=== PATIENT | female | born 1945 | race Caucasian/White ===

== ENCOUNTER 2020-09-01 08:00 | Day surgery (SDC) | payer MEDICARE, OTHER, SELFPAY ==
[2020-08-28 10:29] VITALS: BMI 21.1
--- NOTE | 2020-08-31 09:10 | HO.ANESPROP2 ---
Documented by User: Anahy Odonnell 08/31/20 09:13 HPI - Anesthesia Eval Consult details Narrative: 74yo F for Colonoscopy PMFSH Active Problems Active Problems: All Active Problems (Updated 08/28/20 @ 10:28 by Akua Melgoza) Familial hypercholesterolemia (Acute) Past Medical History Medical History COVID-19 vaccine administered Family History Family History Father No problems noted. Mother No problems noted. Brother No problems noted. Sister No problems noted. Sister No problems noted. Surgical History Surgical History H/O colonoscopy History of cataract surgery History of hysterectomy History of squamous cell carcinoma excision Social History Social History Alcohol intake: current Alcohol intake frequency: a few times a month Smoking Status: Former smoker Advance Directives Information Provided: No Meds Allergies Allergy/AdvReac Type Severity Reaction Status Date / Time dicloxacillin Allergy Unknown Unknown Verified 07/31/20 09:47 minocycline Allergy Unknown Unknown Verified 07/31/20 09:47 penicillin V Allergy Unknown Unknown Verified 07/31/20 09:47 tetracycline Allergy Unknown Unknown Verified 07/31/20 09:47 Home Medications Medication Instructions Recorded Confirmed Last Taken Type aspirin 81 mg tablet,delayed 81 mg PO DAILY 07/31/20 08/28/20 Unknown History release calcium carb-vit D3-minerals 600 1 tab PO BID 07/31/20 08/28/20 Unknown History mg calcium-400 unit tablet vitamin B complex 1 tab PO DAILY 07/31/20 08/28/20 Unknown History Exam Exam Date and Time: August 31, 2020 0910 Height,Weight and Vital Signs: Height 5 ft 4 in Weight 55.792 kg Assessment and Plan Assessment Anesthesia Assessment: Chart Reviewed Documented by User: Alesia Guillen 09/01/20 09:33 [facility] Past Medical History Medical History COVID-19 vaccine administered Family History Family History Father No problems noted. Mother No problems noted. Brother No problems noted. Sister No problems noted. Sister No problems noted. Family history of problems with anesthesia: No Surgical History Surgical History H/O colonoscopy History of cataract surgery History of hysterectomy History of squamous cell carcinoma excision History of Problems with Anesthesia: No Social History Social History Alcohol intake: current Alcohol intake frequency: a few times a month Smoking Status: Former smoker Advance Directives Information Provided: No Meds Allergies Allergy/AdvReac Type Severity Reaction Status Date / Time dicloxacillin Allergy Unknown Unknown Verified 07/31/20 09:47 minocycline Allergy Unknown Unknown Verified 07/31/20 09:47 penicillin V Allergy Unknown Unknown Verified 07/31/20 09:47 tetracycline Allergy Unknown Unknown Verified 07/31/20 09:47 Home Medications Medication Instructions Recorded Confirmed Last Taken Type aspirin 81 mg tablet,delayed 81 mg PO DAILY 07/31/20 08/28/20 Unknown History release calcium carb-vit D3-minerals 600 1 tab PO BID 07/31/20 08/28/20 Unknown History mg calcium-400 unit tablet vitamin B complex 1 tab PO DAILY 07/31/20 08/28/20 Unknown History Exam Height,Weight and Vital Signs: Vital Signs Temp Pulse Resp BP Pulse Ox 09/01/20 08:37 97.7 F 87 16 145/77 H 100 Airway Mallampati Class: II TM Dist: >3cm Neck ROM: Full Loose/Missing/Broken Teeth: No Heart: RRR Lungs: CTAB Assessment and Plan Assessment Anesthesia Assessment: Anesthesia Plan Discussed and Chart Reviewed Final Anesthetic Review NPO: Yes ASA Class: II Final Preanesthetic Review: No Changes in Pt Med Stat, Meds/Allgs Chart Reviewed, Consent Obtained/Reviewed and Anes Risks/Benef Reviewed Patient Risk: Low Procedure Risk: Low Assessment/Block/Sedation in SS: Assess/Block/Sedation-SS Anesthetic Plan Anesthetic Plan: MAC: Disposition: Standard PACU
[2020-09-01 08:37] VITALS: BP 145/77; PULSE 87; RESP 16; TEMP 36.5; O2SAT 100
[2020-09-01] MEDS: Lactated Ringers 1,000 ML 100 ML IVCONT (09:10)
--- NOTE | 2020-09-01 09:31 | MHC.SHP ---
Pre-Procedural Eval Section A The patient is an INPATIENT: No Changes since office visit: No Cold of Flu in the past 2 weeks, No New Medical Problems, No Changes in Medication and No Patient answered all questions The History & Physical has been completed within 30 days and I have reviewed it.: Yes Section B Chief Complaint: change in bowel habit Allergies: Allergies Allergy/AdvReac Type Severity Reaction Status Date / Time dicloxacillin Allergy Unknown Unknown Verified 07/31/20 09:47 minocycline Allergy Unknown Unknown Verified 07/31/20 09:47 penicillin V Allergy Unknown Unknown Verified 07/31/20 09:47 tetracycline Allergy Unknown Unknown Verified 07/31/20 09:47 Plan I have reviewed the history and physical and performed a pertinent physical examination on my patient. No changes have occurred unless specified.
[2020-09-01 10:15] VITALS: BP 98/49; PULSE 76; RESP 20; TEMP 36.1; O2SAT 100
--- NOTE | 2020-09-01 10:17 | PM.OP ---
Brief Operative Note Date of Service: 09/01/20 Pre-op diagnosis: change in bowels, hx polyps Post-op diagnosis: same (normal) Surgeon: Kai Baez Anesthesia: MAC Estimated blood loss (mL): 2 Pathology: other (sigmoid bxs) Condition: stable Disposition: PACU
[2020-09-01 10:30] VITALS: BP 132/62; PULSE 88; RESP 17; TEMP 36.1; O2SAT 100
--- NOTE | 2020-09-01 11:21 | OP_ITS ---
SURGEON: Kai Baez MD INDICATIONS: Change in bowel habits and personal history of colon polyps. PREOPERATIVE DIAGNOSIS: POSTOPERATIVE DIAGNOSIS: PROCEDURE PERFORMED: Colonoscopy to the terminal ileum. ESTIMATED BLOOD LOSS: COMPLICATIONS: ANESTHESIA: ASSISTANTS: SPECIMENS: MEDICATIONS: Monitored anesthesia care. DESCRIPTION OF PROCEDURE: History and physical performed. The risks and benefits of the procedure were explained to the patient. Informed consent was obtained. The patient was placed in the left lateral decubitus position. A digital rectal exam was performed and was found to be normal. The Olympus pediatric video colonoscope was introduced into the rectum and advanced to the cecum without difficulty. The cecum was identified by transillumination, palpation, and identification of ileocecal valve. Examination was performed and the scope was removed. She tolerated the procedure well and was transferred to recovery area in stable condition. FINDINGS: The terminal ileum was normal. The visualized colonic mucosa was normal. The quality of prep was good. The sigmoid was somewhat tortuous. There was sigmoid diverticulosis. No polyps were identified. Random sigmoid biopsies were obtained because of the patient's change in bowel habits. Retroflexed examination was normal. IMPRESSION: Normal colonoscopy. RECOMMENDATION: Follow up the biopsy results. Further screening exams are optional based on patient age. MD MANUELA Huertas/СВЕТЛАНА / [id number] MTDD
== END 2020-09-01 11:03 | disposition home or self-care (01) ==
PROVIDERS: PCP Internal Medicine; Visit Provider Internal Medicine Gastroenterology
PROC: 0DJD8ZZ Inspection of Lower Intestinal Tract, Via Natural or Artificial Opening Endoscopic (ICD-10-PCS; CPT 45378; principal; 2020-09-01 09:00)
DX: R19.4 Change in bowel habit (principal); Z86.010 Personal history of colon polyps; K57.30 Diverticulosis of large intestine without perforation or abscess without bleeding; Z85.828 Personal history of other malignant neoplasm of skin; Z87.891 Personal history of nicotine dependence; Z79.82 Long term (current) use of aspirin; Z79.899 Other long term (current) drug therapy
CPT/HCPCS: 45380; 88305; J3010

== ENCOUNTER 2021-04-23 10:58 | Outpatient (REF) | payer MEDICARE, OTHER, SELFPAY ==
--- NOTE | ~2021-04-23 | MM_ITS ---
EXAMINATION: MM SCREENING DIGITAL BREAST TOMOSYNTHESIS, BILATERAL CLINICAL INFORMATION: Screening. Asymptomatic. The lifetime risk of breast cancer based on the Tyrer-Cuzick Model is 2%. COMPARISON: Mammography: 03/17/2020, 01/21/2019, 01/08/2018 TECHNIQUE: Digital breast tomosynthesis is performed in both the craniocaudal and mediolateral oblique views along with computer-aided detection (CAD). Synthesized 2D images are generated from the tomosynthesis. FINDINGS: The breasts are heterogeneously dense, which may obscure small masses (ACR BI-RADS breast composition Category c). There are no significant masses, abnormal calcifications, or other abnormalities. No significant changes. MM/MM tomosynthesis screening BI IMPRESSION: No mammographic evidence of malignancy. ASSESSMENT: BI-RADS 1: Negative RECOMMENDATION: Routine annual mammography screening. This patient's information was entered into a reminder system with a target due date for their next mammogram.
== END 2021-04-23 10:59 | disposition home or self-care (01) ==
LOC: HO.MAMMO 10:58
PROVIDERS: Visit Provider Internal Medicine
DX: Z12.31 Encounter for screening mammogram for malignant neoplasm of breast (principal)
CPT/HCPCS: 77063; 77067

== ENCOUNTER 2021-09-04 07:21 | Outpatient (REF) | payer MEDICARE, OTHER, SELFPAY ==
[2021-09-04 08:27] LABS: Hematocrit 41.4 % (37.0-47.0); Mean Corpuscular HGB Conc 31.4 g/dl (31.0-35.0); Mean Corpuscular Hemoglobin 27.8 pg (27.0-33.0); Mean Corpuscular Volume 88.5 fL (80.0-98.0); Mean Platelet Volume 10.9 fL (9.4-12.3); Platelet Count 297 X10*3/uL (160-400); Red Blood Count 4.68 X10*6/uL (4.20-5.50); Red Cell Distribution Width 14.1 % (11.0-16.0); White Blood Count 6.8 X10*3/uL (4.8-10.8)
[2021-09-04 08:47] LABS: Alanine Aminotransferase 17 U/L (0-31); Albumin Level 3.9 g/dL (3.5-5.0); Alkaline Phosphatase 72 U/L (39-117); Anion Gap 11 (12-20); Aspartate Amino Transferase 22 U/L (5-31); Bilirubin Direct 0.2 mg/dL (0.0-0.5); Bilirubin Total 0.3 mg/dL (0.0-1.0); Blood Urea Nitrogen 14 mg/dL (9-16); Calcium 9.3 mg/dL (8.4-10.2); Carbon Dioxide 29 mmol/L (22-29); Chloride 106 mmol/L (96-108); Cholesterol 191 mg/dL; Estimated Glomerular Filt Rate > 60; Glucose Random 85 mg/dL (60-115); HDL Cholesterol 70 mg/dL; LDL Cholesterol Calculated 109 mg/dl; Potassium 5.1 mmol/L (3.3-5.1); Sodium 141 mmol/L (135-145); Total Protein 6.5 g/dL (6.5-8.0); Triglycerides 61 mg/dL
[2021-09-04 09:07] LABS: Appearance Urine CLEAR; Color Urine YELLOW; Glucose Urine UA NEG (NEG); Leukocyte Esterase Urine NEG (NEG); Nitrite Urine NEG (NEG); Specific Gravity - Urine 1.015 (1.005-1.025); Urine Blood TRACE (NEG); Urine Ketones NEG (NEG); Urine Protein NEG (NEG-TRACE)
[2021-09-04 09:10] LABS: Thyroid Stimulating Hormone 1.08 uIU/mL (0.32-4.0)
[2021-09-04 09:47] LABS: Amorphous Sediment Urine 2+ /LPF; Bacteria Urine TRACE /LPF; Squamous Epithelial Cell Urine TRACE /LPF
[2021-09-10 17:01] LABS: Vitamin D 25-OH, D2 <4 ng/mL; Vitamin D 25-OH, D3 46 ng/mL; Vitamin D 25-OH, Total 46 ng/mL (30-100)
== END 2021-09-04 07:22 | disposition home or self-care (01) ==
LOC: HO.LAB 07:21
PROVIDERS: PCP Internal Medicine; Visit Provider Internal Medicine
DX: E78.01 Familial hypercholesterolemia (principal)
CPT/HCPCS: 36415; 80048; 80061; 80076; 81001; 81003; 82306; 84443; 85027

== ENCOUNTER 2022-04-25 10:42 | Outpatient (REF) | payer MEDICARE, OTHER, SELFPAY ==
--- NOTE | ~2022-04-25 | MM_ITS ---
EXAMINATION: MM SCREENING DIGITAL BREAST TOMOSYNTHESIS, BILATERAL CLINICAL INFORMATION: Screening. Asymptomatic. COMPARISON: Mammography: 04/23/2021, 03/17/2020, 01/21/2019 TECHNIQUE: Digital breast tomosynthesis is performed in both the craniocaudal and mediolateral oblique views along with computer-aided detection (CAD). Synthesized 2D images are generated from the tomosynthesis. FINDINGS: The breasts are heterogeneously dense, which may obscure small masses (ACR BI-RADS breast composition Category c). There are no significant masses, abnormal calcifications, or other abnormalities. Parenchymal pattern is similar to prior studies. Parenchymal pattern is similar to prior studies. There is no developing density or architectural abnormality. The axilla and skin contours are unremarkable. No significant changes. MM/MM tomosynthesis screening BI IMPRESSION: No mammographic evidence of malignancy. ASSESSMENT: BI-RADS 1: Negative RECOMMENDATION: Routine annual mammography screening. This patient's information was entered into a reminder system with a target due date for their next mammogram.
== END 2022-04-25 10:43 | disposition home or self-care (01) ==
LOC: HO.MAMMO 10:42
PROVIDERS: PCP Internal Medicine; Visit Provider Internal Medicine
DX: Z12.31 Encounter for screening mammogram for malignant neoplasm of breast (principal)
CPT/HCPCS: 77063; 77067

== ENCOUNTER 2022-09-20 07:08 | Outpatient (REF) | payer MEDICARE, OTHER, SELFPAY ==
[2022-09-20 07:40] LABS: Hematocrit 44.2 % (37.0-47.0); Hemoglobin 14.3 g/dl (12.0-16.0); Mean Corpuscular HGB Conc 32.4 g/dl (31.0-35.0); Mean Corpuscular Hemoglobin 27.9 pg (27.0-33.0); Mean Corpuscular Volume 86.3 fL (80.0-98.0); Mean Platelet Volume 10.2 fL (9.4-12.3); Platelet Count 290 X10*3/uL (160-400); Red Blood Count 5.12 X10*6/uL (4.20-5.50); White Blood Count 7.7 X10*3/uL (4.8-10.8)
[2022-09-20 08:09] LABS: Alanine Aminotransferase 16 U/L (0-31); Albumin Level 4.1 g/dL (3.5-5.0); Alkaline Phosphatase 81 U/L (39-117); Anion Gap 11 (12-20); Aspartate Amino Transferase 22 U/L (5-31); Bilirubin Direct 0.2 mg/dL (0.0-0.5); Bilirubin Total 0.7 mg/dL (0.0-1.0); Blood Urea Nitrogen 12 mg/dL (9-16); Calcium 9.4 mg/dL (8.4-10.2); Carbon Dioxide 29 mmol/L (22-29); Chloride 106 mmol/L (96-108); Cholesterol 201 mg/dL; Estimated Glomerular Filt Rate > 60; Glucose Random 87 mg/dL (60-115); HDL Cholesterol 74 mg/dL; LDL Cholesterol Calculated 117 mg/dl; Potassium 4.9 mmol/L (3.3-5.1); Sodium 141 mmol/L (135-145); Total Protein 6.6 g/dL (6.5-8.0); Triglycerides 52 mg/dL
== END 2022-09-20 07:09 | disposition home or self-care (01) ==
LOC: HO.LAB 07:08
PROVIDERS: PCP Internal Medicine; Visit Provider Internal Medicine
DX: M26.609 Unspecified temporomandibular joint disorder, unspecified side (principal); E78.01 Familial hypercholesterolemia
CPT/HCPCS: 36415; 80048; 80061; 80076; 84443; 85027

== ENCOUNTER 2023-03-20 14:44 | Outpatient (AMB) | payer MEDICARE, OTHER, SELFPAY ==
--- NOTE | 2023-03-20 15:10 | A.OFFPC_ITS ---
Vital Signs 03/20/23 15:12 Height 5 ft 3 in Weight 123 lb 4 oz BMI 21.8 BP 122/60 Blood Pressure Location Lt brachial Position Sitting Pulse 71 Pulse Source Pulse Oximeter Pulse Oximetry (%) 98 Oxygen Delivery Method Room Air Intake Visit Reasons: 6M follow up Intake Note: Patient is here to follow up on Familial hypercholesterolemia. Blending Machine Operator Required: No Ice Delivery Driver: Not Required per policy Accompanied by: Self / Same As Patient Allergies dicloxacillin Allergy (Unknown, Verified 03/21/23 13:51) Unknown minocycline Allergy (Unknown, Verified 03/21/23 13:51) Unknown penicillin V Allergy (Unknown, Verified 03/21/23 13:51) Unknown tetracycline Allergy (Unknown, Verified 03/21/23 13:51) Unknown Medication List - Last Reconciled 03/21/23 by Yo Alex MD calcium carbonate (Calcium) 600 mg PO DAILY calcium carbonate-vit D3-min 600 mg calcium- 400 unit 1 tab PO BID clobetasol 0.05% 1 appl topical BEDTIME vitamin B complex (B Complex-Vitamin B12 tablet) 1 tab PO DAILY Tobacco use date assessed: 03/20/23 Fall risk assessment: No Falls in past year Last assessed Fall Risk: 03/20/23 Dental Screening Dental Screen Date: 03/20/23 Did you have a dental visit in the last 12 months?: Yes Did you have a dental problem in the last 6 months where you did not have access to dental care?: No Was dental information given to patient?: Patient has dentist HPI 6M follow up HPI Details 77-year-old female presents to the offic e to discuss her chronic medical conditions. Her TMJ symptoms have completely resolved. In the past few months patient has now had pain in her right foot. She was seeing a stock trader was diagnosed that her arch has fallen. He would like to get a bone density scan which has been scheduled for April. Patient is very reluctant to take any medications for osteoporosis. She does not like to take medications per se. Currently she is undergoing physical therapy and the bandages they have offered for her foot have been helping. [facility] Medical History COVID-19 vaccine administered Surgical History H/O colonoscopy History of squamous cell carcinoma excision History of cataract surgery History of hysterectomy Family History Father No problems noted. Mother No problems noted. Brother No problems noted. Sister No problems noted. Sister No problems noted. Paternal Grandfather Glaucoma Social History Housing: House Alcohol intake: current Alcohol intake frequency: a few times a month Patient Tobacco Use Status: Former Tobacco user Years Smoked: smoked for 25 years, stopped approximatly 25 years ago e-Cigarette/Vaping Use: Never Used Second Hand Smoke Exposure: No service: No Current occupational status: retired Cognitive needs: No Hearing needs: No Vision needs: No Questionnaire Thrive Questionnaire Date Thrive assessed: 09/16/22 RONNA-7 AMB Questionnaire RONNA-7 Date RONNA - 7 assessed: 09/16/22 Source: Developed by Drs. Kaden Fernandez, Caroline Osborne, Daren Juárez and colleagues, with an educational olivia from [employer]. Physical exam (Primary Care) Vital Signs: Last Vital Signs Pulse 71 03/20/23 15:12 BP 122/60 03/20/23 15:12 Pulse Ox 98 03/20/23 15:12 Oxygen Delivery Method Room Air 03/20/23 15:12 BMI result Body Mass Index 21.8 Tobacco/Smoking Status: Tobacco use Status Tobacco use date assessed 03/20/23 03/20/23 15:16 Patient Tobacco Use Status Former Tobacco user 03/20/23 15:16 e-Cigarette/Vaping Use Never Used 03/20/23 15:16 Thrive Assessment: Date of Thrive Assessment Date Thrive assessed 09/16/22 03/20/23 15:16 Const General: cooperative and healthy appearing Nutritional Appearance: well nourished Orientation/consciousness: patient oriented x3 Limitations: no limitations HENMT Head: Yes normal to inspection Eyes General: appearance normal, both eyes and all related structures Neck Neck: Yes normal visual inspection Chest Chest palpation & inspection: normal palpation of entire chest wall Resp Effort & Inspection: normal respiratory effort Neuro General: patient oriented x3 Assessment and Plan Assessment & Plan (1) Age related osteoporosis: Code(s): M81.0 - Age-related osteoporosis without current pathological fracture Plan: Bone density has been ordered. Will decide course of action after the test is available. Patient has been encouraged to increase calcium intake and exercise. (2) Familial hypercholesterolemia: Code(s): E78.01 - Familial hypercholesterolemia Plan: LDL is in range. Currently on no medications. Coding Level of Care Code Est Pt Level 4 (82523) Diagnoses Age related osteoporosis M81.0 Familial hypercholesterolemia E78.01
[2023-03-20 15:12] VITALS: BP 122/60; PULSE 71; O2SAT 98; BMI 21.8
== END 2023-03-20 15:38 | disposition home or self-care (01) ==
PROVIDERS: Visit Provider Internal Medicine
DX: M81.0 Age-related osteoporosis without current pathological fracture (principal); E78.01 Familial hypercholesterolemia
CPT/HCPCS: 99214

== ENCOUNTER 2023-04-01 09:34 | Outpatient (AMB) | payer MEDICARE, OTHER, SELFPAY ==
--- NOTE | 2023-04-01 09:59 | AM.OFFVISNUR ---
Intake Intake Visit Reasons: Flu Vaccine Allergies dicloxacillin Allergy (Unknown, Verified 03/21/23 13:51) Unknown minocycline Allergy (Unknown, Verified 03/21/23 13:51) Unknown penicillin V Allergy (Unknown, Verified 03/21/23 13:51) Unknown tetracycline Allergy (Unknown, Verified 03/21/23 13:51) Unknown Office Procedures Flu Questionnaire Does the patient have a severe egg allergy?: No Does the patient have severe life threatening allergies?: No Does the patient have a fever or illness today?: No Has the patient ever had Guillain-[place] Syndrome?: No Has the patient ever had any past reaction to a flu shot?: No Immunizations flu vacc [id number] 6mos up(PF) 60 mcg(15 mcgx4)/0.5 mL IM syringe Performing Provider: Yo Alex MD Performing Location: [facility] Administered by: Nilam Gilmore CMA on 04/01/23 10:00 Dose Route Admin Location Dispensed Lot Number Expiration Date NDC Refrigerating Engineer 0.5 mL IM Left Deltoid 0.5 mL [id number] 12/21/23 01015-614-20 [employer] VIS Given Date VIS Provided VIS Publication Date 04/01/23 Single Vaccine 21 Eligibility Eligibility Date Funding Source Not [facility] Eligible 04/01/23 Private Coding Assessment & Plan Assessment & Plan Orders: Orders Influenza [id number] Immunization Today Z23 - Encounter for immunization
== END 2023-04-01 10:10 | disposition home or self-care (01) ==
LOC: HO.HMGH 09:34
PROVIDERS: PCP Internal Medicine; Visit Provider Internal Medicine
DX: Z23 Encounter for immunization (principal)
CPT/HCPCS: 90471; 90686

== ENCOUNTER 2023-05-01 10:06 | Outpatient (REF) | payer MEDICARE, OTHER, SELFPAY ==
--- NOTE | ~2023-05-01 | MM_ITS ---
EXAMINATION: BONE DENSITOMETRY CLINICAL INDICATION: Age-related osteoporosis without current pathological fracture. COMPARISON: Previous BD dated 03/08/2014 and baseline BD dated 01/15/2008. TECHNIQUE: Using a cube19 DXA System (software version: 13.1) manufactured by [employer], dual-energy x-ray absorptiometry was performed of the lumbar spine and left hip. The images are of good technical quality. Summary results are attached. FINDINGS: AP SPINE L1-L3 (excluding L4): The data of L1-L4 has been changed to exclude the L4 vertebral body, because degenerative sclerosis at this level may cause overestimation of lumbar spine density. Current: BMD 0.778 g/cm2, Z-score -1.2, T-score -3.3, osteoporosis, 3.2% decrease from previous, 2.9% decrease from baseline (<5% change is not significant). Prior: BMD 0.804 g/cm2. Baseline: BMD 0.801 g/cm2. LEFT FEMUR, NECK: Current: BMD 0.660 g/cm2, Z-score -0.5, T-score -2.7, osteoporosis. Prior: BMD 0.776 g/cm2. Baseline: BMD 0.789 g/cm2. LEFT FEMUR, TOTAL: Current: BMD 0.646 g/cm2, Z-score -0.8, T-score -2.9, osteoporosis, 12.2% decrease from previous, 20.7% decrease from baseline (<5% change is not significant). Prior: BMD 0.736 g/cm2. Baseline: BMD 0.815 g/cm2. IDENTIFIED RISK FACTORS: Early menopause, secondary osteoporosis, hysterectomy, left oophorectomy, parental hip fracture. HISTORY OF FRACTURE: None listed. MEDICATIONS: Calcium supplements or multivitamin, vitamin D. MM/XR DEXA axial skeleton IMPRESSION: 1. DIAGNOSIS: Osteoporosis based on the lowest T-score value of -3.3 in the lumbar spine applying World Health Organization criteria. 2. 10-YEAR FRACTURE RISK PREDICTION, FRAX: According to the guidelines, FRAX calculation should only be performed on patients in the osteopenia bone density category. Therefore, FRAX was not performed on this patient. 3. Treatment Recommendations: NOF guidelines recommend consideration for treatment in postmenopausal women and men age 50 and older presenting with the following: -A hip or vertebral (clinical or morphometric) fracture. -T-score less than or equal to -2.5 at the femoral neck or spine after appropriate evaluation to exclude secondary causes. -Low bone mass at the hip or spine and a 10-year fracture probability by FRAX of greater than or equal to 3% for hip fracture or greater than or equal to 20% for major osteoporotic fracture based on the [place] adapted WHO algorithm. 4. Other Recommendations: All treatment decisions require clinical judgment and consideration of individual patient factors, including patient preferences, comorbidities, previous drug use, risk factors not captured in the FRAX model (e.g. frailty, falls, vitamin D deficiency, increased bone turnover, interval significant decline in bone density) and possible under or overestimation of fracture risk by FRAX. Additional medical evaluation for secondary cause of low bone mineral density may be appropriate. FUTURE SCAN RECOMMENDATION: People with diagnosed cases of osteoporosis or at high risk for fracture should have regular bone mineral density tests. For patients eligible for Medicare, routine testing is allowed once every 2 years. The testing frequency can be increased to one year for patients who have rapidly progressing disease, those who are receiving or discontinuing medical therapy to restore bone mass, or have additional risk factors.
== END 2023-05-01 10:07 | disposition home or self-care (01) ==
LOC: HO.MAMMO 10:06
PROVIDERS: PCP Internal Medicine; Visit Provider Internal Medicine
DX: Z12.31 Encounter for screening mammogram for malignant neoplasm of breast (principal); Z13.820 Encounter for screening for osteoporosis; M81.0 Age-related osteoporosis without current pathological fracture; Z78.0 Asymptomatic menopausal state
CPT/HCPCS: 77063; 77067; 77080; 77081

== ENCOUNTER → 2023-05-01 10:30 | Outpatient (BNV) | payer MEDICARE, OTHER, SELFPAY | PROVIDERS: PCP Internal Medicine; Visit Provider Radiology Diagnostic Radiology | DX: Z12.31 Encounter for screening mammogram for malignant neoplasm of breast (principal) | CPT/HCPCS: 77063; 77067 ==

== ENCOUNTER 2023-07-21 10:41 | Outpatient (AMB) | payer MEDICARE, OTHER, SELFPAY ==
--- NOTE | 2023-07-21 12:46 | AM.OFFWIN_ITS ---
Intake Vital Signs 07/21/23 12:50 Height 5 ft 3 in Weight 123 lb 6 oz BMI 21.9 BP 138/76 Blood Pressure Location Rt brachial Position Sitting Pulse 88 Pulse Source Pulse Oximeter Temp 97.6 F Temp Source Oral Pulse Oximetry (%) 99 Oxygen Delivery Method Room Air Intake Visit Reasons: EP Stomach, Fever, Runny Nose(Jeep Wrangler Black) Intake Note: Pt is here c/o stomach pain, fever, and runny nose since last week. Patient Tobacco Use Status: Former Tobacco user Allergies dicloxacillin Allergy (Unknown, Verified 07/21/23 12:52) Unknown minocycline Allergy (Unknown, Verified 07/21/23 12:52) Unknown penicillin V Allergy (Unknown, Verified 07/21/23 12:52) Unknown tetracycline Allergy (Unknown, Verified 07/21/23 12:52) Unknown Do you need a note to return to daycare/school/sports/work: No HPI EP Stomach, Fever, Runny Nose(Jeep Wrangler Black) HPI Details 77-year-old female presents to the [facility] for a sick visit. Patient is feeling queasy and nauseous for the past week. She feels bloated and some distention in the abdomen. Reports congestion in the chest at times. Occasional palpitations. No vomiting. No fevers or chills. PFSH Medical History COVID-19 vaccine administered Surgical History H/O colonoscopy History of squamous cell carcinoma excision History of cataract surgery History of hysterectomy Family History Father No problems noted. Mother No problems noted. Brother No problems noted. Sister No problems noted. Sister No problems noted. Paternal Grandfather Glaucoma Social History Housing: House Alcohol intake: current Alcohol intake frequency: a few times a month Patient Tobacco Use Status: Former Tobacco user Years Smoked: smoked for 25 years, stopped approximatly 25 years ago e-Cigarette/Vaping Use: Never Used Second Hand Smoke Exposure: No service: No Current occupational status: retired Cognitive needs: No Hearing needs: No Vision needs: No Physical Exam Vital Signs: Last Vital Signs Temp 97.6 F 07/21/23 12:50 Pulse 88 07/21/23 12:50 BP 138/76 07/21/23 12:50 Pulse Ox 99 07/21/23 12:50 Oxygen Delivery Method Room Air 07/21/23 12:50 BMI result Body Mass Index 21.9 Const General: cooperative and healthy appearing Nutritional Appearance: well nourished Orientation/consciousness: patient oriented x3 Limitations: no limitations HEENT Head: Yes normal to inspection Eyes General: appearance normal, both eyes and all related structures Neck Neck: Yes normal visual inspection Chest Chest palpation & inspection: normal palpation of entire chest wall Resp Effort & Inspection: normal respiratory effort Neuro General: patient oriented x3 Office Procedures EKG Details: NORMAL SINUS RHYTHM WITH PVCS. [id number], Complete Assessment & Plan Assessment & Plan (1) Abdominal pain: Code(s): R10.9 - Unspecified abdominal pain Plan: Physical exam was essentially unremarkable except for an irregular pulse. EKG confirms PVCs. Abdominal x-ray shows large amount of air and significant fecal matter. Her symptoms are more likely due to constipation and air in the colon. Milk of magnesia with instructions given. If symptoms do not improve after passing bowels, I suggested she follow-up here. Orders: Orders AMB EKG-In Office Today R07.9 - Chest pain, unspecified XR abdomen min 2V Today R10.9 - Unspecified abdominal pain Coding Level of Care Code Est Pt Level 4 (30178) Diagnoses Abdominal pain R10.9 CPT Codes EKG - CPT: 50932-[id number], Complete ([id number])
[2023-07-21 12:50] VITALS: BP 138/76; PULSE 88; TEMP 36.4; O2SAT 99; BMI 21.9
== END 2023-07-21 14:46 | disposition home or self-care (01) ==
PROVIDERS: PCP Internal Medicine; Visit Provider Internal Medicine
DX: R10.9 Unspecified abdominal pain (principal)
CPT/HCPCS: 93000; 99214

== ENCOUNTER 2023-07-21 13:44 | Outpatient (REF) | payer MEDICARE, OTHER, SELFPAY ==
--- NOTE | ~2023-07-21 | XR_ITS ---
EXAMINATION: XR ABDOMEN COMPLETE CLINICAL INDICATION: Unspecified abdominal pain COMPARISON: None available. TECHNIQUE: 2 views of the abdomen. FINDINGS: There is scattered moderate stool and gas seen throughout the colon without distention. There is no organomegaly. No radiopaque calculi. No gross bony abnormality. XR/XR abdomen min 2V IMPRESSION: Moderate constipation.
== END 2023-07-21 13:45 | disposition home or self-care (01) ==
LOC: HO.HMGCX 13:44
PROVIDERS: PCP Internal Medicine; Visit Provider Internal Medicine
DX: R10.9 Unspecified abdominal pain (principal)
CPT/HCPCS: 74019

== ENCOUNTER 2023-09-11 14:49 | Outpatient (AMB) | payer MEDICARE, OTHER, SELFPAY ==
--- NOTE | 2023-09-11 14:56 | A.OFFPC_ITS ---
Vital Signs 09/11/23 15:00 Height 5 ft 3 in Weight 123 lb 2 oz BMI 21.8 BP 132/70 Blood Pressure Location Lt brachial Position Sitting Pulse 68 Pulse Source Pulse Oximeter Pulse Oximetry (%) 100 Oxygen Delivery Method Room Air Intake Visit Reasons: 6 month f/u Intake Note: Patient is here to follow up on Osteoporosis, TMJ Dysfunction, Familial Hypercholesterolemia. Bin Tripper Operator Required: No Maintenance Fitter: Not Required per policy Accompanied by: Self / Same As Patient Allergies dicloxacillin Allergy (Unknown, Verified 09/11/23 14:59) Unknown minocycline Allergy (Unknown, Verified 09/11/23 14:59) Unknown penicillin V Allergy (Unknown, Verified 09/11/23 14:59) Unknown tetracycline Allergy (Unknown, Verified 09/11/23 14:59) Unknown Tobacco use date assessed: 09/11/23 Fall risk assessment: No Falls in past year Last assessed Fall Risk: 09/11/23 Dental Screening Dental Screen Date: 09/11/23 Did you have a dental visit in the last 12 months?: Yes Did you have a dental problem in the last 6 months where you did not have access to dental care?: No Was dental information given to patient?: Patient has dentist HPI 6 month f/u HPI Details 77-year-old female presents to the offic e to discuss her chronic medical conditions. I had seen the patient in the walk-in. She responded very well to the milk of magnesia and her symptoms have all resolved. She is back to her baseline state of health. Able to function and do all activities of daily living. Recent bone density showed osteoporosis, patient very reluctant to start any medications. [facility], [facility] Medical History (Updated 09/11/23 @ 16:02 by Yo Alex MD) Age related osteoporosis Familial hypercholesterolemia Constipation by delayed colonic transit COVID-19 vaccine administered Surgical History H/O colonoscopy History of squamous cell carcinoma excision History of cataract surgery History of hysterectomy Family History Father No problems noted. Mother No problems noted. Brother No problems noted. Sister No problems noted. Sister No problems noted. Paternal Grandfather Glaucoma Social History Housing: House Alcohol intake: current Alcohol intake frequency: a few times a month Patient Tobacco Use Status: Former Tobacco user Years Smoked: smoked for 25 years, stopped approximatly 25 years ago e-Cigarette/Vaping Use: Never Used Second Hand Smoke Exposure: No service: No Current occupational status: retired Cognitive needs: No Hearing needs: No Vision needs: No Questionnaire PHQ-9 Over the last 2 weeks, how often have you been bothered by any of the following problems? 1. Little interest or pleasure in doing things: not at all 2. Feeling down, depressed, or hopeless: not at all 3. Trouble falling or staying asleep, or sleeping too much: not at all 4. Feeling tired or having little energy: not at all 5. Poor appetite or overeating: not at all 6. Feeling bad about yourself - or that you are a failure or have let yourself or your family down: not at all 7. Trouble concentrating on things, such as reading the newspaper or watching television: not at all 8. Moving or speaking so slowly that other people could have noticed. Or the opposite - being so fidgety or restless that you have been moving around a lot more than usual: not at all 9. Thoughts that you would be better off or of hurting yourself in some way: not at all Total score: 0 Depression Screening Interpretation: Negative Depression Screening Done: Yes Source: Developed by Drs. Kaden Fernandez, Caroline Osborne, Daren Juárez and colleagues, with an educational oilvia from [employer]. Thrive Questionnaire Date Thrive assessed: 09/11/23 I am a: Patient What is your living situation today?: I have a steady place to live Within the past 12 months, did the food you bought not last and you didn't have the money to get more?: Never true Within the past 12 months, did you worry whether your food would run out before you got money to buy more?: Never true Do you have trouble paying for medicines?: No Do you have trouble getting transportation to medical appointments?: No Do you have trouble paying your heating and electricity bill?: No Do you have trouble taking care of your child, family member or friend?: No Do you have trouble with day-to-day activities such as bathing, preparing meals, shopping, managing finances, etc.?: No Are you currently unemployed and looking for a job?: No Are you interested in more education?: No Currently or been in a relationship where the following occur: no concerns reported THRIVE Score: 0 AUDIT C Alcohol Use Questionnaire (AUDIT-C) 1. How often do you have a drink containing alcohol?: Never Total Score: 0 RONNA-7 AMB Questionnaire RONNA-7 Date RONNA - 7 assessed: 09/11/23 Feeling nervous, anxious, or on edge: 0 = Not at all Not being able to stop or control worryin = Not at all Worrying too much about different things: 0 = Not at all Trouble relaxin = Not at all Being so restless that it is hard to sit still: 0 = Not at all Becoming easily annoyed or irritable: 0 = Not at all Feeling afraid as if something awful might happen: 0 = Not at all Total RONNA-7 score (0-4 normal; 5-9 mild; 10-14 moderate; 15-21 severe): 0 Source: Developed by Drs. Kaden Fernandez, Caroline Osborne, Daren Juárez and colleagues, with an educational olivia from [employer]. Physical exam (Primary Care) Vital Signs: Last Vital Signs Pulse 68 09/11/23 15:00 BP 132/70 09/11/23 15:00 Pulse Ox 100 09/11/23 15:00 Oxygen Delivery Method Room Air 09/11/23 15:00 BMI result Body Mass Index 21.8 Tobacco/Smoking Status: Tobacco use Status Tobacco use date assessed 09/11/23 09/11/23 15:05 Patient Tobacco Use Status Former Tobacco user 09/11/23 14:56 e-Cigarette/Vaping Use Never Used 09/11/23 14:56 PHQ-9: PHQ-9 Score PHQ-9: Total score 0 09/11/23 15:05 Depression Screening Interpretation: Negative Thrive Assessment: Date of Thrive Assessment Date Thrive assessed 09/11/23 09/11/23 15:05 Currently or been in a relationship where the following occur: no concerns reported Const General: cooperative and healthy appearing Nutritional Appearance: well nourished Orientation/consciousness: patient oriented x3 Limitations: no limitations HENMT Head: Yes normal to inspection Eyes General: appearance normal, both eyes and all related structures Neck Neck: Yes normal visual inspection Chest Chest palpation & inspection: normal palpation of entire chest wall Resp Effort & Inspection: normal respiratory effort Neuro General: patient oriented x3 Assessment and Plan Assessment & Plan (1) Age related osteoporosis: Code(s): M81.0 - Age-related osteoporosis without current pathological fracture Plan: DEXA scan discussed with patient. She is reluctant to start medications. Patient was encouraged exercise and diet rich in calcium. (2) Familial hypercholesterolemia: Code(s): E78.01 - Familial hypercholesterolemia Plan: Blood work has been ordered. Will call with the results. (3) Constipation by delayed colonic transit: Code(s): K59.01 - Slow transit constipation Plan: High-fiber diet suggested. Coding Level of Care Code Est Pt Level 4 (27342) Diagnoses Age related osteoporosis M81.0 Familial hypercholesterolemia E78.01 Constipation by delayed colonic transit K59.01
[2023-09-11 15:00] VITALS: BP 132/70; PULSE 68; O2SAT 100; BMI 21.8
== END 2023-09-11 16:03 | disposition home or self-care (01) ==
PROVIDERS: PCP Internal Medicine; Visit Provider Internal Medicine
DX: M81.0 Age-related osteoporosis without current pathological fracture (principal); E78.01 Familial hypercholesterolemia; K59.01 Slow transit constipation
CPT/HCPCS: 99214

== ENCOUNTER 2023-09-22 07:37 | Outpatient (REF) | payer MEDICARE, OTHER, SELFPAY ==
[2023-09-22 08:02] LABS: Mean Corpuscular HGB Conc 33.3 g/dl (31.0-35.0); Mean Corpuscular Hemoglobin 28.5 pg (27.0-33.0); Mean Corpuscular Volume 85.5 fL (80.0-98.0); Platelet Count 291 X10*3/uL (160-400); Red Blood Count 4.91 X10*6/uL (4.20-5.50); Red Cell Distribution Width 13.8 % (11.0-16.0); White Blood Count 6.8 X10*3/uL (4.8-10.8)
[2023-09-22 08:35] LABS: Alanine Aminotransferase 18 U/L (0-31); Albumin Level 4.1 g/dL (3.5-5.0); Alkaline Phosphatase 82 U/L (39-117); Anion Gap 10 (12-20); Aspartate Amino Transferase 20 U/L (5-31); Bilirubin Direct 0.2 mg/dL (0.0-0.5); Bilirubin Total 0.5 mg/dL (0.0-1.0); Blood Urea Nitrogen 13 mg/dL (9-16); Calcium 9.7 mg/dL (8.4-10.2); Carbon Dioxide 29 mmol/L (22-29); Chloride 106 mmol/L (96-108); Cholesterol 196 mg/dL (<200); Estimated Glomerular Filt Rate > 60; Glucose Random 90 mg/dL (60-115); HDL Cholesterol 74 mg/dL (>40); LDL Cholesterol Calculated 111 mg/dL (<100); Potassium 4.1 mmol/L (3.3-5.1); Sodium 141 mmol/L (135-145); Total Protein 6.8 g/dL (6.5-8.0); Triglycerides 58 mg/dL (<150)
[2023-09-22 08:53] LABS: Thyroid Stimulating Hormone 1.14 uIU/mL (0.32-4.0)
[2023-09-22 09:27] LABS: Appearance Urine Clear; Color Urine Yellow; Glucose Urine UA Negative (Negative); Leukocyte Esterase Urine Moderate (2+) (Negative); Nitrite Urine Negative (Negative); UMIC TRIGGER UA YES; Urine Blood Trace (Negative); Urine Ketones Negative (Negative); Urine Protein Negative (Neg-Trace)
[2023-09-22 10:03] LABS: Bacteria Urine None Seen (None Seen); Hyaline Casts Urine 0-2 /LPF (0-2); Squamous Epithelial Cell Urine 0-2 /HPF (0-2); WBC Urine 0-5 /HPF (0-5)
== END 2023-09-22 07:38 | disposition home or self-care (01) ==
LOC: HO.LAB 07:37
PROVIDERS: PCP Internal Medicine; Visit Provider Internal Medicine
DX: E78.01 Familial hypercholesterolemia (principal)
CPT/HCPCS: 36415; 80048; 80061; 80076; 81001; 81003; 84443; 85027

== ENCOUNTER 2024-03-18 14:59 | Outpatient (AMB) | payer MEDICARE, OTHER, SELFPAY ==
--- NOTE | 2024-03-18 15:05 | A.OFFPC_ITS ---
Vital Signs 03/18/24 15:06 Height 5 ft 3 in Weight 122 lb BMI 21.6 BP 110/70 Blood Pressure Location Rt brachial Position Sitting Intake Visit Reasons: 6 follow up Intake Note: Patient is here to follow up on TMJ Dysfunction, Hypercholesterolemia. Computer Operations Specialist Required: No Head Charrer: Not Required per policy Accompanied by: Self / Same As Patient Allergies dicloxacillin Allergy (Unknown, Verified 03/19/24 15:03) Unknown minocycline Allergy (Unknown, Verified 03/19/24 15:03) Unknown penicillin V Allergy (Unknown, Verified 03/19/24 15:03) Unknown tetracycline Allergy (Unknown, Verified 03/19/24 15:03) Unknown Medication List - Last Reconciled 03/19/24 by Yo Alex MD fluticasone propionate 50 mcg/actuation (Flonase Allergy Relief) 1 spray intranasal DAILY Tobacco use date assessed: 03/18/24 Fall risk assessment: No Falls in past year Last assessed Fall Risk: 03/18/24 Dental Screening Dental Screen Date: 09/11/23 HPI 6 follow up HPI Details 78-year-old female presents to the offic e to discuss her chronic medical conditions. Patient is reporting that she is at baseline state of health. Able to function and do activities of daily living. Patient has symptoms of persistent running nose and believes that it is an exaggeration of her allergy symptoms. [facility] Medical History (Updated 09/11/23 @ 16:02 by Yo Alex MD) Age related osteoporosis Familial hypercholesterolemia Constipation by delayed colonic transit COVID-19 vaccine administered Surgical History H/O colonoscopy History of squamous cell carcinoma excision History of cataract surgery History of hysterectomy Family History Father No problems noted. Mother No problems noted. Brother No problems noted. Sister No problems noted. Sister No problems noted. Paternal Grandfather Glaucoma Social History Housing: House Alcohol intake: current Alcohol intake frequency: a few times a month Patient Tobacco Use Status: Former Tobacco user Years Smoked: smoked for 25 years, stopped approximatly 25 years ago e-Cigarette/Vaping Use: Never Used Second Hand Smoke Exposure: No service: No Current occupational status: retired Cognitive needs: No Hearing needs: No Vision needs: No Questionnaire Thrive Questionnaire Date Thrive assessed: 09/11/23 Are you currently unemployed and looking for a job?: No AUDIT C Alcohol Use Questionnaire (AUDIT-C) 2. How many drinks containing alcohol do you have on a typical day when you are drinking?: 1 or 2 3. How often do you have six or more drinks on one occasion?: Never Total Score: 0 RONNA-7 AMB Questionnaire RONNA-7 Date RONNA - 7 assessed: 09/11/23 Source: Developed by Drs. Kaden Fernandez, Caroline Osborne, Daren Juárez and colleagues, with an educational olivia from [employer]. Physical exam (Primary Care) Vital Signs: Last Vital Signs BP 110/70 03/18/24 15:06 BMI result Body Mass Index 21.6 Tobacco/Smoking Status: Tobacco use Status Tobacco use date assessed 03/18/24 03/18/24 15:16 Patient Tobacco Use Status Former Tobacco user 03/18/24 15:16 e-Cigarette/Vaping Use Never Used 03/18/24 15:16 Thrive Assessment: Date of Thrive Assessment Date Thrive assessed 09/11/23 03/18/24 15:16 Const General: cooperative and healthy appearing Nutritional Appearance: well nourished Orientation/consciousness: patient oriented x3 Limitations: no limitations HENMT Head: Yes normal to inspection Eyes General: appearance normal, both eyes and all related structures Neck Neck: Yes normal visual inspection Chest Chest palpation & inspection: normal palpation of entire chest wall Resp Effort & Inspection: normal respiratory effort Neuro General: patient oriented x3 Assessment and Plan Assessment & Plan (1) Allergic rhinitis: Code(s): J30.9 - Allergic rhinitis, unspecified Plan: Flonase added to the regimen. Medications: New fluticasone propionate 50 mcg/actuation (Flonase Allergy Relief) administer into each nostril 1 spray intranasal DAILY 9.9 mL 1RF Coding Level of Care Code Est Pt Level 3 (39095) Diagnoses Allergic rhinitis J30.9
[2024-03-18 15:06] VITALS: BP 110/70; BMI 21.6
== END 2024-03-18 15:44 | disposition home or self-care (01) ==
PROVIDERS: PCP Internal Medicine; Visit Provider Internal Medicine
DX: J30.9 Allergic rhinitis, unspecified (principal)

== ENCOUNTER → 2024-03-18 14:59 | Outpatient (BNVA) | payer MEDICARE, OTHER, SELFPAY | PROVIDERS: PCP Internal Medicine; Visit Provider Internal Medicine | DX: J30.9 Allergic rhinitis, unspecified (principal) | CPT/HCPCS: 99212 ==

== ENCOUNTER 2024-05-06 10:03 | Outpatient (REF) | payer MEDICARE, OTHER, SELFPAY ==
--- NOTE | ~2024-05-06 | MM_ITS ---
EXAMINATION: MM SCREENING DIGITAL BREAST TOMOSYNTHESIS, BILATERAL CLINICAL INFORMATION: Screening. Asymptomatic. COMPARISON: Mammography: Comparison is made with available priors TECHNIQUE: Digital breast mammography with tomosynthesis is performed in both the craniocaudal and mediolateral oblique views along with computer-aided detection (CAD). FINDINGS: The breasts are heterogeneously dense, which may obscure small masses (ACR BI-RADS breast composition Category c). There are no significant masses, abnormal calcifications, or other abnormalities. MM/MM tomosynthesis screening BI IMPRESSION: No mammographic evidence of malignancy. ASSESSMENT: BI-RADS BI-RADS 1 - Negative RECOMMENDATION: Routine annual mammography screening. 1 year F/U This examination should not preclude the clinical evaluation of a suspicious palpable abnormality. This patient's information was entered into a reminder system with a target due date for their next mammogram. Electronically signed by: Brittaney Crisostomo DO 05/14/2024 10:45 AM TONY
== END 2024-05-06 10:04 | disposition home or self-care (01) ==
LOC: HO.MAMMO 10:03
PROVIDERS: PCP Internal Medicine; Visit Provider Internal Medicine
DX: Z12.31 Encounter for screening mammogram for malignant neoplasm of breast (principal)
CPT/HCPCS: 77063; 77067

== ENCOUNTER → 2024-05-06 10:15 | Outpatient (BNV) | payer MEDICARE, OTHER, SELFPAY | PROVIDERS: PCP Internal Medicine; Visit Provider Internal Medicine | DX: Z12.31 Encounter for screening mammogram for malignant neoplasm of breast (principal) | CPT/HCPCS: 77063; 77067 ==

== ENCOUNTER 2024-06-30 09:12 | Outpatient (AMB) | payer MEDICARE, OTHER, SELFPAY ==
--- NOTE | 2024-06-30 09:20 | MHC.PC.OV ---
Vital Signs 06/30/24 09:24 Height 5 ft 3 in Weight 122 lb 8 oz BMI 21.7 BP 110/68 Blood Pressure Location Lt brachial Position Sitting Pulse 71 Pulse Source Pulse Oximeter Pulse Oximetry (%) 97 Oxygen Delivery Method Room Air Intake Visit Reasons: Osteoporosis Intake Note: Patient is here to follow up on Osteoporosis. American History Teacher Required: No Estimate Clerk: Not Required per policy Accompanied by: Self / Same As Patient Allergies dicloxacillin Allergy (Unknown, Verified 06/30/24 10:11) Unknown minocycline Allergy (Unknown, Verified 06/30/24 10:11) Unknown penicillin V Allergy (Unknown, Verified 06/30/24 10:11) Unknown tetracycline Allergy (Unknown, Verified 06/30/24 10:11) Unknown Medication List - Last Reconciled 06/30/24 by Yo Alex MD No Known Home Meds Tobacco use date assessed: 06/30/24 Fall risk assessment: No Falls in past year Last assessed Fall Risk: 06/30/24 Dental Screening Dental Screen Date: 06/30/24 Did you have a dental visit in the last 12 months?: Yes Did you have a dental problem in the last 6 months where you did not have access to dental care?: No Was dental information given to patient?: Patient has dentist [facility] Medical History (Updated 06/30/24 @ 10:13 by Yo Alex MD) Squamous cell carcinoma of left upper extremity Age related osteoporosis Familial hypercholesterolemia Constipation by delayed colonic transit COVID-19 vaccine administered Surgical History H/O colonoscopy History of squamous cell carcinoma excision History of cataract surgery History of hysterectomy Family History Father No problems noted. Mother No problems noted. Brother No problems noted. Sister No problems noted. Sister No problems noted. Paternal Grandfather Glaucoma Social History Housing: House Alcohol intake: current Alcohol intake frequency: a few times a month Patient Tobacco Use Status: Former Tobacco user Years Smoked: smoked for 25 years, stopped approximatly 25 years ago e-Cigarette/Vaping Use: Never Used Second Hand Smoke Exposure: Yes service: No Current occupational status: retired Cognitive needs: No Hearing needs: No Vision needs: No Questionnaire PHQ-9 Over the last 2 weeks, how often have you been bothered by any of the following problems? 1. Little interest or pleasure in doing things: not at all 2. Feeling down, depressed, or hopeless: not at all 3. Trouble falling or staying asleep, or sleeping too much: not at all 4. Feeling tired or having little energy: not at all 5. Poor appetite or overeating: not at all 6. Feeling bad about yourself - or that you are a failure or have let yourself or your family down: not at all 7. Trouble concentrating on things, such as reading the newspaper or watching television: not at all 8. Moving or speaking so slowly that other people could have noticed. Or the opposite - being so fidgety or restless that you have been moving around a lot more than usual: not at all 9. Thoughts that you would be better off or of hurting yourself in some way: not at all Total score: 0 Depression Screening Interpretation: Negative Depression Screening Done: Yes Source: Developed by Drs. Kaden Fernandez, Caroline Osborne, Daren Juárez and colleagues, with an educational olivia from [employer]. Thrive Questionnaire Date Thrive assessed: 06/30/24 I am a: Patient What is your living situation today?: I have a steady place to live Within the past 12 months, did the food you bought not last and you didn't have the money to get more?: Never true Within the past 12 months, did you worry whether your food would run out before you got money to buy more?: Never true Do you have trouble paying for medicines?: No Do you have trouble getting transportation to medical appointments?: No Do you have trouble paying your heating and electricity bill?: No Do you have trouble taking care of your child, family member or friend?: No Do you have trouble with day-to-day activities such as bathing, preparing meals, shopping, managing finances, etc.?: No Are you currently unemployed and looking for a job?: No Are you interested in more education?: No Please select the resources that you would like help with: None Currently or been in a relationship where the following occur: No concerns reported THRIVE Score: 0 AUDIT C Alcohol Use Questionnaire (AUDIT-C) 1. How often do you have a drink containing alcohol?: Never 2. How many drinks containing alcohol do you have on a typical day when you are drinking?: 1 or 2 3. How often do you have six or more drinks on one occasion?: Never Total Score: 0 RONNA-7 AMB Questionnaire RONNA-7 Date RONNA - 7 assessed: 06/30/24 Feeling nervous, anxious, or on edge: 0 = Not at all Not being able to stop or control worryin = Not at all Worrying too much about different things: 0 = Not at all Trouble relaxin = Not at all Being so restless that it is hard to sit still: 0 = Not at all Becoming easily annoyed or irritable: 0 = Not at all Feeling afraid as if something awful might happen: 0 = Not at all Total RONNA-7 score (0-4 normal; 5-9 mild; 10-14 moderate; 15-21 severe): 0 Source: Developed by Drs. Kaden Fernandez, Caroline Osborne, Daren Juárez and colleagues, with an educational olivia from [employer]. Physical exam (Primary Care) Vital Signs: Last Vital Signs Pulse 71 06/30/24 09:24 BP 110/68 06/30/24 09:24 Pulse Ox 97 06/30/24 09:24 Oxygen Delivery Method Room Air 06/30/24 09:24 Care Plan Goal for BP management: BP in range. On no medications BMI result Body Mass Index 21.7 Tobacco/Smoking Status: Tobacco use Status Tobacco use date assessed 06/30/24 06/30/24 09:21 Patient Tobacco Use Status Former Tobacco user 06/30/24 09:21 e-Cigarette/Vaping Use Never Used 06/30/24 09:21 PHQ-9: PHQ-9 Score PHQ-9: Total score 0 06/30/24 09:21 Depression Screening Interpretation: Negative Thrive Assessment: Date of Thrive Assessment Date Thrive assessed 06/30/24 06/30/24 09:21 Currently or been in a relationship where the following occur: No concerns reported Coding Level of Care Code Est Pt Level 4 (55945) Complex EM visit Add On G2211 Diagnoses Age related osteoporosis M81.0 Familial hypercholesterolemia E78.01 Squamous cell carcinoma of left upper extremity C44.629 Assessment & Plan Assessment & Plan (1) Age related osteoporosis: Code(s): M81.0 - Age-related osteoporosis without current pathological fracture Category: Medical Plan: Bone density to be checked later this year. Continue diet and exercise. No medication needed. (2) Familial hypercholesterolemia: Code(s): E78.01 - Familial hypercholesterolemia Category: Medical Plan: LDL in range. No medication needed. (3) Squamous cell carcinoma of left upper extremity: Code(s): C44.629 - Squamous cell carcinoma of skin of left upper limb, including shoulder Category: Medical Plan: Patient sees the kosher sealer and a Mohs procedure is being planned. Plan History of Present Illness The patient is a 78-year-old female presenting with a dermatological concern specifically related to previous biopsies revealing squamous cell carcinoma. The patient reports having undergone four biopsies, with two resulting in squamous cell carcinoma findings. There is a lesion on the side of her face and another on her hand. The hand lesion has been recommended for Mohs micrographic surgery, which is scheduled in two weeks. She notes that the lesion on her hand has not been healing and continues to bleed. She has been visiting a kosher sealer regularly, and this current situation arose during her most recent examination. Social History - Dietary habits include a regular, healthy diet and experimentation with Benefiber for gastrointestinal concerns. - Participates in as much physical activity as feasible, including daily outings but has not been consistent with weight lifting. - Enjoys cooking, although she self-reports a desire to improve skills. - Drives independently but avoids driving at night unless necessary. - Engages in personal health responsibilities, including receiving influenza and COVID vaccinations. Review of Systems - General: Denies any current pain. - Genitourinary: Denies trouble with urination. - Neurological: Reports fluctuations in sleep quality. Physical Exam General: Cooperative and healthy appearing Nutritional Appearance: Well nourished Orientation/consciousness: Patient oriented x3 Limitations: No limitations Head: Normal to inspection General: Appearance normal, both eyes and all related structures Neck: Normal visual inspection Chest: Normal palpation of entire chest wall Respiratory: Normal respiratory effort Neurology: Patient oriented x3 Results - Dermatological biopsies: Two confirmed squamous cell carcinoma findings. Plan - Scheduled Mohs surgery for the hand lesion in two weeks to ensure complete excision. - Follow-up with the kosher sealer for re-evaluation of the facial lesion. Patient was informed and verbally consented to the use of an ambient scribe for clinic note documentation during this visit. Discussion Notes During the visit, I discussed the diagnosis of squamous cell carcinoma arising from the recent biopsy results. I explained the recommendation for Mohs micrographic surgery for the lesion on the hand, emphasizing its importance due to the non-healing and bleeding nature of the lesion. I provided reassurance regarding the procedure and potential outcomes. Options were discussed, and the patient expressed understanding and acceptance of the recommended plan. I confirmed the scheduling of the procedure in two weeks and stressed the need for continued follow-up visits with her kosher sealer. Patient Instructions - Proceed with the scheduled Mohs surgery for the hand lesion. - Continue regular follow-up with the kosher sealer for all scheduled evaluations. - Contact the medical office immediately if there is any change in the condition of the lesions or any concerns post-surgery.
[2024-06-30 09:24] VITALS: BP 110/68; PULSE 71; O2SAT 97; BMI 21.7
== END 2024-06-30 10:04 | disposition home or self-care (01) ==
PROVIDERS: PCP Internal Medicine; Visit Provider Internal Medicine
DX: M81.0 Age-related osteoporosis without current pathological fracture (principal); E78.01 Familial hypercholesterolemia; C44.629 Squamous cell carcinoma of skin of left upper limb, including shoulder

== ENCOUNTER → 2024-06-30 09:12 | Outpatient (BNVA) | payer MEDICARE, OTHER, SELFPAY | PROVIDERS: PCP Internal Medicine; Visit Provider Internal Medicine | DX: M81.0 Age-related osteoporosis without current pathological fracture (principal); E78.01 Familial hypercholesterolemia; C44.629 Squamous cell carcinoma of skin of left upper limb, including shoulder | CPT/HCPCS: 96127; 99212 ==

== ENCOUNTER 2024-12-30 09:46 | Outpatient (AMB) | payer MEDICARE, OTHER, SELFPAY ==
--- NOTE | 2024-12-30 10:03 | MHC.PC.OV ---
Vital Signs 12/30/24 10:04 Height 5 ft 3 in Weight 118 lb 6 oz BMI 21.0 BP 142/80 H Blood Pressure Location Lt brachial Position Sitting Pulse 87 Pulse Source Pulse Oximeter Temp 97.1 F Temp Source Temporal Artery Scan Pulse Oximetry (%) 100 Oxygen Delivery Method Room Air Intake Visit Reasons: 6 month f/u Systems Analyst Required: No Accompanied by: Self / Same As Patient Allergies dicloxacillin Allergy (Unknown, Verified 12/30/24 10:07) Unknown minocycline Allergy (Unknown, Verified 12/30/24 10:07) Unknown penicillin V Allergy (Unknown, Verified 12/30/24 10:07) Unknown tetracycline Allergy (Unknown, Verified 12/30/24 10:07) Unknown Tobacco use date assessed: 06/30/24 Fall risk assessment: No Falls in past year Last assessed Fall Risk: 12/30/24 Dental Screening Dental Screen Date: 06/30/24 [facility] Medical History (Updated 06/30/24 @ 10:13 by Yo Alex MD) Squamous cell carcinoma of left upper extremity Age related osteoporosis Familial hypercholesterolemia Constipation by delayed colonic transit COVID-19 vaccine administered Surgical History H/O colonoscopy (~09/01/20) History of squamous cell carcinoma excision History of cataract surgery History of hysterectomy Family History Father No problems noted. Mother No problems noted. Brother No problems noted. Sister No problems noted. Sister No problems noted. Paternal Grandfather Glaucoma Social History Housing: House Alcohol intake: current Alcohol intake frequency: a few times a month Patient Tobacco Use Status: Former Tobacco user Years Smoked: smoked for 25 years, stopped approximatly 25 years ago e-Cigarette/Vaping Use: Never Used Second Hand Smoke Exposure: Yes service: No Current occupational status: retired Cognitive needs: No Hearing needs: No Vision needs: No Questionnaire PHQ-9 Over the last 2 weeks, how often have you been bothered by any of the following problems? 1. Little interest or pleasure in doing things: not at all 2. Feeling down, depressed, or hopeless: not at all 3. Trouble falling or staying asleep, or sleeping too much: several days 4. Feeling tired or having little energy: several days 5. Poor appetite or overeating: not at all 6. Feeling bad about yourself - or that you are a failure or have let yourself or your family down: not at all 7. Trouble concentrating on things, such as reading the newspaper or watching television: not at all 8. Moving or speaking so slowly that other people could have noticed. Or the opposite - being so fidgety or restless that you have been moving around a lot more than usual: not at all 9. Thoughts that you would be better off or of hurting yourself in some way: not at all Total score: 2 Source: Developed by Drs. Kaden Fernandez, Caroline Osborne, Daren Juárez and colleagues, with an educational olivia from [employer]. Thrive Questionnaire Date Thrive assessed: 12/26/24 I am a: Patient What is your living situation today?: I have a steady place to live Within the past 12 months, did the food you bought not last and you didn't have the money to get more?: Never true Within the past 12 months, did you worry whether your food would run out before you got money to buy more?: Never true Do you have trouble paying for medicines?: No Do you have trouble getting transportation to medical appointments?: No Do you have trouble paying your heating and electricity bill?: No Do you have trouble taking care of your child, family member or friend?: No Do you have trouble with day-to-day activities such as bathing, preparing meals, shopping, managing finances, etc.?: No Are you currently unemployed and looking for a job?: No Are you interested in more education?: No Please select the resources that you would like help with: None Currently or been in a relationship where the following occur: No concerns reported THRIVE Score: 0 AUDIT C Alcohol Use Questionnaire (AUDIT-C) 1. How often do you have a drink containing alcohol?: Monthly or less Total Score: 1 RONNA-7 AMB Questionnaire RONNA-7 Date RONNA - 7 assessed: 06/30/24 Feeling nervous, anxious, or on edge: 0 = Not at all Not being able to stop or control worryin = Not at all Worrying too much about different things: 1 = Several days Trouble relaxin = Several days Being so restless that it is hard to sit still: 1 = Several days Becoming easily annoyed or irritable: 0 = Not at all Feeling afraid as if something awful might happen: 0 = Not at all Total RONNA-7 score (0-4 normal; 5-9 mild; 10-14 moderate; 15-21 severe): 3 Source: Developed by Drs. Kaden Fernandez, Caroline Osborne, Daren Juárez and colleagues, with an educational olivia from [employer]. Physical exam (Primary Care) Vital Signs: Last Vital Signs Temp 97.1 F 12/30/24 10:04 Pulse 87 12/30/24 10:04 BP 142/80 H 12/30/24 10:04 Pulse Ox 100 12/30/24 10:04 Oxygen Delivery Method Room Air 12/30/24 10:04 BMI result Body Mass Index 21.0 Tobacco/Smoking Status: Tobacco use Status Tobacco use date assessed 06/30/24 12/30/24 10:03 Patient Tobacco Use Status Former Tobacco user 12/30/24 10:03 e-Cigarette/Vaping Use Never Used 12/30/24 10:03 PHQ-9: PHQ-9 Score PHQ-9: Total score 2 12/30/24 10:03 Thrive Assessment: Date of Thrive Assessment Date Thrive assessed 12/26/24 12/30/24 10:03 Currently or been in a relationship where the following occur: No concerns reported Coding Level of Care Code Est Pt Level 4 (91422) Complex EM visit Add On G2211 Diagnoses Age related osteoporosis M81.0 Assessment & Plan Assessment & Plan (1) Age related osteoporosis: Code(s): M81.0 - Age-related osteoporosis without current pathological fracture Category: Medical Plan: BW ordered. Will call with results Plan History of Present Illness - The patient is an 79-year-old female presenting with a routine check-up and preventative care. - The patient underwent Mohs surgery for a skin condition, which was successful. - A biopsy was recently performed on another skin lesion, and results are pending. - The patient reports an episodic pinching sensation, described as a bite, occurring intermittently without a clear trigger. - The patient remains active, engaging in activities such as mowing lawns, and maintains a high level of organization in her daily life. - Blood work has been ordered as part of preventative care, with instructions to fast before the test. Social History - The patient remains active, engaging in activities such as mowing lawns. - The patient maintains a high level of organization in her daily life. Review of Systems - Neurological: Reports episodic pinching sensation, described as a bite, occurring intermittently. Physical Exam General: Cooperative and healthy appearing Nutritional Appearance: Well nourished Orientation/consciousness: Patient oriented x3 Limitations: No limitations Head: Normal to inspection General: Appearance normal, both eyes and all related structures Neck: Normal visual inspection Chest: Normal palpation of entire chest wall Respiratory: N ormal respiratory effort Neurology: Patient oriented x3, reports fine motor skill issues, such as dropping things and difficulty with focus. Results Plan 1. Skin Condition Requiring Mohs Surgery - Mohs surgery was performed successfully. - A biopsy was taken from another lesion, and results are pending. 2. Episodic Pinching Sensation - The patient reports an episodic pinching sensation, described as a bite, occurring intermittently without a clear trigger. 3. Preventative Care: Blood Work - Blood work has been ordered as part of preventative care, with instructions to fast before the test. Discussion Notes I discussed the importance of completing the blood work as part of the patient's preventative care regimen. The patient was instructed to fast before the test. We also reviewed the recent Mohs surgery and the pending biopsy results. Follow-up was scheduled for six months to monitor the patient's health and address any new concerns. Patient Instructions - Complete blood work as instructed, ensuring to fast before the test. - Follow up in six months for routine check-up and to discuss any new health concerns. Orders: Orders Basic Metabolic Panel Today M81.0 - Age-related osteoporosis without current pathological fracture Complete Blood Count no Diff Today M81.0 - Age-related osteoporosis without current pathological fracture UA and rflx microscopic Today M81.0 - Age-related osteoporosis without current pathological fracture Lipid Panel Today M81.0 - Age-related osteoporosis without current pathological fracture Liver Panel Today M81.0 - Age-related osteoporosis without current pathological fracture Thyroid Stimulating Hormone Today M81.0 - Age-related osteoporosis without current pathological fracture
[2024-12-30 10:04] VITALS: BP 142/80; PULSE 87; TEMP 36.2; O2SAT 100; BMI 21.0
--- OUTSIDE RECORDS SUMMARY | 2024-12-30 10:18 | XMS_ITS | Patient Health Record ---
Author Organization [facility] Address [address] [place] [address] Care Team Providers Care Vacuum Drier Tender Name Role Phone IsaiYo ortez Primary Care Provider Kaiser Hodge Unavailable [phone] Allergies Allergen (clinical drug ingredient) Drug/Non Drug Allergy documented on EMR Reaction Allergy Type Onset Date Status amoxicillin Amoxicillin mouth sores, nausea, yeast inf Drug Allergy Active Biaxin Unknown Drug Allergy Active minocycline Minocycline HCl Unknown Drug Allergy Active tetracycline Tetracycline HCl Unknown Drug Allergy Active Penicillin mouth sores, nausea, yeast inf Drug Allergy Active Reason For Referral No Information Medications Medication SIG (Take, Route, Fr equency, Duration) Notes Start Date End Date Status Vitamin B Complex-C Active Vitamin D3 Active Physical Therapy . . . 2-3x/week; Durat ion: 3-4 weeks 07/24/2023 Active Boostrix Not-Taking Voltaren 1 % as directed Externally 03/06/2023 Not-Taking Physical Therapy . . . 2-3x/week; Durat ion: 3-4 weeks 03/06/2023 Not-Taking Calcium + D Active Social History Tobacco Use: Social History Observation Description Date Details (start date - stop date) Former Smoker NA - NA Tobacco Use/Smoking Question Answer Notes Are you a: former smoker Additional Findings: Tobacco Non-User Current no n-smoker Alcohol Screen Question Answer Notes Did you have a drink containing alcohol in the p ast year? Yes Points 0 Interpretation Negative Tobacco use other than smoking: Question Answer Notes Are you an other tobacco user? No Problems Problem Type SNOMED Code ICD Code Onset Dates Problem Status W/U Status Risk Notes Problem Localized, primary osteoarthritis of the ankle and/or foot (289207518) Primary osteoarthrit is, right ankle and foot (M19.071) Active confirmed Problem Hallux rigidus, left foot (M20.22) Active confirmed Problem Acquired hallux rigidus (5612901) Hallux rigidus, right foot (M20.21) Active confirmed Plan Of Treatment Pending Test Test Name Order Date X ray : Foot, right 3V 01/08/2016 X ray : Foot, right 3V 01/22/2023 47071, J0702- INJECT or DRAIN, JOINT/BUR SA 07/24/2023 X ray : Ankle, right 3V 01/22/2023 Insurance Providers Payer Name Payer Address Payer Phone Subscriber Number Group Number Insured Name Patient Relationship to Insured Coverage Start Date Coverage End Date Medicare National [employer] [address] [place] [address] [id number] Belén Hook Self - patient is the insured [id number] ([facility]) [address] [place] [address] [id number] Belén Hook Self - patient is the insured Medical (General) History Medical History History ICD Code Broken bones Cataracts Depression Measles Mumps Chicken pox covid-19 Osteoporosis Warts Surgical History Surgery Date(Month/Year) hysterectomy 1986 cataract surgery 2014 skin cancer removal / carcinoma at [facility] Hospitalization History Reason Date(Month/Year)
--- OUTSIDE RECORDS SUMMARY | 2024-12-30 10:18 | XMS_ITS | Patient Health Record ---
Author Organization [facility] Address [address] [place] [address] Care Team Providers Care Retail Loss Prevention Specialist Name Role Phone KRISHAN, KARTIK Primary Care Provider Kai Penaloza Jr Unavailable [phone] Allergies Allergen (clinical drug ingredient) Drug/Non Drug Allergy documented on EMR Reaction Allergy Type Onset Date Status tetracycline Tetracycline HCl Unknown Drug Allergy Active minocycline Minocycline HCl Unknown Drug Allergy Active Penicillin (uncoded) Unknown Allergy Active sumycin (uncoded) Unknown Allergy Ac tive Reason For Referral No Information Medications Medication SIG (Take, Route, Frequency, Duration) Notes Start Date End Date Status Ibuprofen PRN Active Tylenol PRN Active MiraLax (colon prep) 8.3 ounce ((238) grams mixed with Gatorade or Crystal Light orally begin at 5:00 p.m. the day before the procedure for 1 day 08/21/2020 Active Vitamin D3 1000 UNIT 1 capsule Orally On ce a day Active Calcium 600 600 MG 1 tablet Orally Four times a day Active Aspir-81 Active Vitamin B Complex-C Active Immunizations Vaccine Route Administration Date Status Comme nts Influenza Unknown 02/06/2020 Administered Problems Problem Type SNOMED Code ICD Code Onset Dates Problem Status W/U Status Risk Notes Problem 324242016 Colon cancer screening (V76.51) Active confirmed Problem 372812574 Personal history of colonic polyps (Z86.010) Active confirmed Problem 120432434 Change in bowel habits (R19.4) Active confirmed Plan Of Treatment Future Test Test Name Order Date COLONOSCOPY 11/04/2014 COLONOSCOPY 08/21/2020 Insurance Providers Payer Name Payer Address Payer Phone Subscriber Number Group Number Insured Name Patient Relationship to Insured Coverage Start Date Coverage End Date MEDICARE OF [place] [address] [place] [address] [id number] MILADYS DINERO Self - patient is the insured [facility] INDEMN[facility] [address] [place] [address] [phone] [id number] MILADYS DINERO Self - patient is the insured Medical (General) History Medical History History ICD Code colonoscopy 02/24/15, tubular adenomas x2 Denies CO,DM,CVA,Lung disease,renal dise ase back issues Surgical History Surgery Date(Month/Year) hysterectomy cataract removal - bilateral
--- OUTSIDE RECORDS SUMMARY | 2024-12-30 10:18 | XMS_ITS | Patient Health Record ---
Author Organization [facility] Address [address] [place] [address] [place] [address] Care Team Providers Care Land Leveler Name Role Phone MINERVA LUIS M.D. Primary Care Provider Unavail able MYLES LARIOS Unavailable [phone] Allergies Allergen (clinical drug ingredient) Drug/Non Drug Allergy documented on EMR Reaction Allergy Type Onset Date Status minocycline Minocycline HCl Unknown Drug Allergy Active tetracycline Tetracycline HCl Unknown Drug Allergy Active ENVIRONMENTAL ALLERGIES Unknown Drug Allergy Active Reason For Referral No Information Medications Medication SIG (Take, Route, Frequency, Duration) Notes Start Date End Date Status Vitamin B Complex - 1 tablet Orally daily Active PredniSONE 20 MG 1 tablet with food o r milk Orally Once a day for 5 day(s) 04/27/2014 Not-Taking Vitamin D-3 1000 UNIT 1 capsule Orally O nce a day Active Calcium 600+D High Potency 600-400 MG-UNIT 1 tablet with food Orally Once a day Not-Taking Immunizations Vaccine Route Administration Date Status Comme nts PNEUMOCOCCAL - 23 POLY (PNEUMOVAX 23) IM Intramuscular 05/13/2017 Administered [facility] [id number] Social History Tobacco Use: Social History Observation Description Date Details (start date - stop date) Former Smoker NA - NA Tobacco Status: Question Answer Notes Patient is a former smoker Problems Problem Type SNOMED Code ICD Code Onset Dates Problem Status W/U Status Risk Notes Problem 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) Active confirmed Migrated - ProblemLi st-3706-P [facility] - UrgentCar e-10/02/19 14 Problem 204083227 Gastro-esophagea l reflux disease without esophagitis (K21.9) Active confirmed Problem Allergic contact dermatitis (678591891) Allergic contact dermatitis, unspecified cause (L23.9) Active confirmed Problem 693547316 GERD (gastroesop hageal reflux disease) (530.81) Active confirmed Problem 291579669 Osteopenia (733.90) Active confirmed Problem 51349956 Cervical radicul itis (723.4) Active confirmed Problem 843398664 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 confirmed Problem 35814574 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) Active confirmed Problem 98745884 Vitamin D defici ency (E55.9) Active confirmed Problem 431763620 Medicare annual wellness visit, subsequent (Z00.00) Active confirmed Problem 727436554 Squamous cell carcinoma (C80.1) Active confirmed Problem 2258253 Chalazion of lef t lower eyelid (H00.15) Active confirmed Problem 156669795 Osteopenia deter mined by x-ray (M85.80) Active confirmed Problem 25089307 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) Active confirmed Problem 32383265 Blepharitis, carly ateral (H01.003) Active confirmed Problem 57836688 Hypercholesterol emia (E78.00) Active confirmed Problem 74263979 Non-seasonal all ergic rhinitis due to pollen (J30.1) Active confirmed Problem 028934208 Bunion of right foot (M21.611) Active confirmed Plan Of Treatment Future Test Test Name Order Date COMPREHENSIVE METABOLIC PANEL([id number]) 1 07/04/2018 CBC (INCLUDES DIFF/PLT)(Q-6399) 05/04/20 19 VITAMIN D,25-OH,TOTAL,IA (Q-77535) 05/04 LIPID PANEL WITH DIRECT LDL (Q-78656) Insurance Providers Payer Name Payer Address Payer Phone Subscriber Number Group Number Insured Name Patient Relationship to Insured Coverage Start Date Coverage End Date [place]ARE [place] PART B [address] [facility] VETO MARIA TERESA ROMERO [id number] Belén Hook Self - patient is the insured [facility] PRIOR TO [id number] [address] [place] [id number] [phone] [id number] Belén Hook Self - patient is the insured 2 2 Medical (General) History Medical History History ICD Code Eczematous Dermatitis Esophageal reflux Allergic rhinitis Squamous cell carcinoma Right foot bunion Depression Osteopenia Surgical History Surgery Date(Month/Year) hysterectomy 1985 cataract surgery - Bilateral summer 2014 colonoscopy and [place] Summer 2014 Hospitalization History Reason Date(Month/Year) surgery
== END 2024-12-30 10:57 | disposition home or self-care (01) ==
LOC: HO.HMCH 09:47
PROVIDERS: PCP Internal Medicine; Visit Provider Internal Medicine
DX: M81.0 Age-related osteoporosis without current pathological fracture (principal)

== ENCOUNTER → 2024-12-30 09:46 | Outpatient (BNVA) | payer MEDICARE, OTHER, SELFPAY | PROVIDERS: PCP Internal Medicine; Visit Provider Internal Medicine | DX: M81.0 Age-related osteoporosis without current pathological fracture (principal) | CPT/HCPCS: 99212 ==

== ENCOUNTER 2024-12-31 07:05 | Outpatient (REF) | payer MEDICARE, OTHER, SELFPAY ==
--- OUTSIDE RECORDS SUMMARY | 2024-12-31 07:09 | XMS_ITS | Patient Health Record ---
Author Organization [facility] Address [address] [place] [address] [place] [address] Care Team Providers Care Division Order Technician Name Role Phone MINERVA LUIS M.D. 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) Active confirmed Migrated - ProblemLi st-3706-P [facility] - UrgentCar e-10/02/19 14 Problem 483102395 Gastro-esophagea l reflux disease without esophagitis (K21.9) Active confirmed Problem Allergic contact dermatitis (222742179) Allergic contact dermatitis, unspecified cause (L23.9) Active confirmed Problem 717099664 GERD (gastroesop hageal reflux disease) (530.81) Active confirmed Problem 225867990 Osteopenia (733.90) Active confirmed Problem 69197817 Cervical radicul itis (723.4) Active confirmed Problem 344095292 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 confirmed Problem 35721648 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) Active confirmed Problem 81157898 Vitamin D defici ency (E55.9) Active confirmed Problem 458782056 Medicare annual wellness visit, subsequent (Z00.00) Active confirmed Problem 751841709 Squamous cell carcinoma (C80.1) Active confirmed Problem 5868805 Chalazion of lef t lower eyelid (H00.15) Active confirmed Problem 382605341 Osteopenia deter mined by x-ray (M85.80) Active confirmed Problem 19286705 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) Active confirmed Problem 94987658 Blepharitis, carly ateral (H01.003) Active confirmed Problem 75832866 Hypercholesterol emia (E78.00) Active confirmed Problem 32263385 Non-seasonal all ergic rhinitis due to pollen (J30.1) Active confirmed Problem 073875583 Bunion of right foot (M21.611) Active confirmed Plan Of Treatment Future Test Test Name Order Date COMPREHENSIVE METABOLIC PANEL([id number]) 1 07/04/2018 CBC (INCLUDES DIFF/PLT)(Q-6399) 05/04/20 19 VITAMIN D,25-OH,TOTAL,IA (Q-45198) 05/04 LIPID PANEL WITH DIRECT LDL (Q-00366) Insurance Providers Payer Name Payer Address Payer Phone Subscriber Number Group Number Insured Name Patient Relationship to Insured Coverage Start Date Coverage End Date MEDICARE [place] PART B [address] [facility] VETO MARIA TERESA ROMERO [id number] Belén Hook Self - patient is the insured [facility] PRIOR TO [id number] [address] [place] [id number] Belén Hook Self - patient is the insured 2 2 Medical (General) History Medical History History ICD Code Eczematous Dermatitis Esophageal reflux Allergic rhinitis Squamous cell carcinoma Right foot bunion Depression Osteopenia Surgical History Surgery Date(Month/Year) hysterectomy 1985 cataract surgery - Bilateral summer 2014 colonoscopy and [place] Summer 2014 Hospitalization History Reason Date(Month/Year) surgery
--- OUTSIDE RECORDS SUMMARY | 2024-12-31 07:09 | XMS_ITS | Patient Health Record ---
Author Organization [facility] Address [address] [place] [address] Care Team Providers Care Reservoir Engineering Advisor Name Role Phone KRISHAN, KARTIK Primary Care Provider Kai Penaloza Jr Unavailable Allergies Allergen (clinical drug ingredient) Drug/Non Drug [...] Problem Status W/U Status Risk Notes Problem 558571135 Colon cancer screening (V76.51) Active confirmed Problem 292274077 Personal history of colonic polyps (Z86.010) Active confirmed Problem 469676897 Change in bowel habits (R19.4) Active confirmed Plan Of Treatment Future Test Test Name Order Date COLONOSCOPY 11/04/2014 COLONOSCOPY 08/21/2020 Insurance Providers Payer Name Payer Address Payer Phone Subscriber Number Group Number Insured Name Patient Relationship to Insured Coverage Start Date Coverage End Date MEDICARE OF [place] [address] [place] [address] [id number] MILADYS DINERO Self - patient is the insured [facility] INDEMNITY [address] [place] [address] [phone] [id number] MILADYS DINERO Self - patient is the insured Medical (General) History Medical History History ICD Code colonoscopy 02/24/15, tubular adenomas x2 Denies [place],DM,CVA,Lung disease,renal dise ase back issues Surgical History Surgery Date(Month/Year) hysterectomy cataract removal - bilateral
[2024-12-31 07:44] LABS: Hematocrit 40.3 % (37.0-47.0); Hemoglobin 13.6 g/dl (12.0-16.0); Mean Corpuscular HGB Conc 33.7 g/dl (31.0-35.0); Mean Corpuscular Hemoglobin 28.8 pg (27.0-33.0); Mean Corpuscular Volume 85.4 fL (80.0-98.0); NRBC Abs Auto 0.000 X10*3/uL (0.0-0.012); NRBC Pct Auto 0.0 /100WBC (0.0-0.2); Platelet Count 277 X10*3/uL (160-400); Red Blood Count 4.72 X10*6/uL (4.20-5.50); White Blood Count 6.7 X10*3/uL (4.8-10.8)
[2024-12-31 08:11] LABS: Appearance Urine Clear; Glucose Urine UA Negative (Negative); PH 7.5 (5.0-9.0); Specific Gravity - Urine 1.010 (1.005-1.025); UMIC TRIGGER UA YES
[2024-12-31 08:29] LABS: Alanine Aminotransferase 22 U/L (0-31); Albumin Level 4.1 g/dL (3.5-5.0); Alkaline Phosphatase 76 U/L (39-117); Anion Gap 9 (12-20); Aspartate Amino Transferase 33 U/L (5-31); Blood Urea Nitrogen 12 mg/dL (9-16); Calcium 9.2 mg/dL (8.4-10.2); Carbon Dioxide 30 mmol/L (22-29); Chloride 106 mmol/L (96-108); Cholesterol 194 mg/dL (<200); Estimated Glomerular Filt Rate > 60; HDL Cholesterol 79 mg/dL (>40); Potassium 4.7 mmol/L (3.3-5.1); Sodium 140 mmol/L (135-145); Total Protein 6.4 g/dL (6.5-8.0); Triglycerides 51 mg/dL (<150)
[2024-12-31 08:46] LABS: Thyroid Stimulating Hormone 1.13 uIU/mL (0.32-4.0)
== END 2024-12-31 07:06 | disposition home or self-care (01) ==
LOC: HO.LAB 07:05
PROVIDERS: PCP Internal Medicine; Visit Provider Internal Medicine
DX: M81.0 Age-related osteoporosis without current pathological fracture (principal)
CPT/HCPCS: 36415; 80048; 80061; 80076; 81001; 81003; 84443; 85027

== ENCOUNTER 2025-03-16 09:46 | Outpatient (AMB) | payer MEDICARE, OTHER, SELFPAY ==
--- NOTE | 2025-03-16 09:59 | A.OFFPC_ITS ---
Vital Signs 03/16/25 10:00 Height 5 ft 3 in Weight 114 lb 2 oz BMI 20.2 BP 140/90 H Blood Pressure Location Lt brachial Position Sitting Pulse 83 Pulse Source Pulse Oximeter Temp 97.1 F Temp Source Temporal Artery Scan Pulse Oximetry (%) 100 Oxygen Delivery Method Room Air Intake Visit Reasons: 6mth f/u, resched Intake Note: Patient is here to follow up on Anxiety over her spouse care. 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 Dispensing Optician: Not Required per policy Accompanied by: Self / Same As Patient Allergies dicloxacillin Allergy (Unknown, Verified 03/16/25 10:00) Unknown minocycline Allergy (Unknown, Verified 03/16/25 10:00) Unknown penicillin V Allergy (Unknown, Verified 03/16/25 10:00) Unknown tetracycline Allergy (Unknown, Verified 03/16/25 10:00) Unknown Tobacco use date assessed: 03/16/25 Fall risk assessment: No Falls in past year Last assessed Fall Risk: 03/16/25 Dental Screening Dental Screen Date: 06/30/24 [facility] Medical History (Updated 06/30/24 @ 10:13 by Yo Alex MD) Squamous cell carcinoma of left upper extremity Age related osteoporosis Familial hypercholesterolemia Constipation by delayed colonic transit COVID-19 vaccine administered Surgical History H/O colonoscopy (~09/01/20) History of squamous cell carcinoma excision History of cataract surgery History of hysterectomy Family History Father No problems noted. Mother No problems noted. Brother No problems noted. Sister No problems noted. Sister No problems noted. Paternal Grandfather Glaucoma Social History Housing: House Alcohol intake: current Alcohol intake frequency: a few times a month Patient Tobacco Use Status: Former Tobacco user Years Smoked: smoked for 25 years, stopped approximatly 25 years ago e-Cigarette/Vaping Use: Never Used Second Hand Smoke Exposure: Yes service: No Current occupational status: retired Cognitive needs: No Hearing needs: No Vision needs: No Questionnaire PHQ-9 Over the last 2 weeks, how often have you been bothered by any of the following problems? 1. Little interest or pleasure in doing things: not at all 2. Feeling down, depressed, or hopeless: more than half the days 3. Trouble falling or staying asleep, or sleeping too much: nearly every day 4. Feeling tired or having little energy: not at all 5. Poor appetite or overeating: more than half the days 6. Feeling bad about yourself - or that you are a failure or have let yourself or your family down: several days 7. Trouble concentrating on things, such as reading the newspaper or watching television: several days 8. Moving or speaking so slowly that other people could have noticed. Or the opposite - being so fidgety or restless that you have been moving around a lot more than usual: more than half the days 9. Thoughts that you would be better off or of hurting yourself in some way: not at all Total score: 11 Depression Screening Interpretation: Positive Depression Screening Done: Yes Source: Developed by Drs. Kaden Fernandez, Caroline Osborne, Daren Juárez and colleagues, with an educational olivia from [employer]. Thrive Questionnaire Date Thrive assessed: 12/26/24 I am a: Patient What is your living situation today?: I have a steady place to live Within the past 12 months, did the food you bought not last and you didn't have the money to get more?: Never true Within the past 12 months, did you worry whether your food would run out before you got money to buy more?: Never true Do you have trouble paying for medicines?: No Do you have trouble getting transportation to medical appointments?: No Do you have trouble paying your heating and electricity bill?: No Do you have trouble taking care of your child, family member or friend?: No Do you have trouble with day-to-day activities such as bathing, preparing meals, shopping, managing finances, etc.?: No Are you currently unemployed and looking for a job?: No Are you interested in more education?: No Please select the resources that you would like help with: None Currently or been in a relationship where the following occur: No concerns reported THRIVE Score: 0 RONNA-7 AMB Questionnaire RONNA-7 Date RONNA - 7 assessed: 03/16/25 Feeling nervous, anxious, or on edge: 3 = Nearly every day Not being able to stop or control worryin = Nearly every day Worrying too much about different things: 3 = Nearly every day Trouble relaxin = Nearly every day Being so restless that it is hard to sit still: 3 = Nearly every day Becoming easily annoyed or irritable: 3 = Nearly every day Feeling afraid as if something awful might happen: 3 = Nearly every day Total RONNA-7 score (0-4 normal; 5-9 mild; 10-14 moderate; 15-21 severe): 21 Source: Developed by Drs. Kaden Fernandez, Caroline Osborne, Daren Juárez and colleagues, with an educational olivia from [employer]. Physical exam (Primary Care) Vital Signs: Last Vital Signs Temp 97.1 F 03/16/25 10:00 Pulse 83 03/16/25 10:00 BP 140/90 H 03/16/25 10:00 Pulse Ox 100 03/16/25 10:00 Oxygen Delivery Method Room Air 03/16/25 10:00 BMI result Body Mass Index 20.2 Tobacco/Smoking Status: Tobacco use Status Tobacco use date assessed 03/16/25 03/16/25 10:08 Patient Tobacco Use Status Former Tobacco user 03/16/25 10:08 e-Cigarette/Vaping Use Never Used 03/16/25 10:08 PHQ-9: PHQ-9 Score PHQ-9: Total score 11 03/16/25 10:08 Depression Screening Interpretation: Positive Thrive Assessment: Date of Thrive Assessment Date Thrive assessed 12/26/24 03/16/25 10:08 Currently or been in a relationship where the following occur: No concerns reported Coding Level of Care Code Est Pt Level 4 (08411) Complex EM visit Add On G2211 Diagnoses Generalized anxiety disorder F41.1 Assessment & Plan Assessment & Plan (1) Generalized anxiety disorder: Code(s): F41.1 - Generalized anxiety disorder Plan: History of Present Illness - The patient is an 79-year-old female presenting with anxiety and insomnia. - Her had a stroke two months ago and is now in a rehabilitation facility, which she visits daily. - She feels anxious when not visiting, despite knowing he is well cared for, and struggles with sleep. Social History - The patient is and her is currently in a rehabilitation facility following a stroke. - She does not have children and has a sister and her 's sister as family support. Review of Systems - Psychiatric: Reports anxiety and insomnia. Physical Exam General: Cooperative and healthy appearing Nutritional Appearance: Well nourished Orientation/consciousness: Patient oriented x3 Limitations: No limitations Head: Normal to inspection General: Appearance normal, both eyes and all related structures Neck: Normal visual inspection Chest: Normal palpation of entire chest wall Respiratory: N ormal respiratory effort Neurology: Patient oriented x3, experiencing anxiety and sleep disturbances. Results Plan - Initiate clonazepam for anxiety and insomnia, with dosing instructions to avoid driving post-consumption. - Schedule a follow-up appointment next week to evaluate treatment response and make necessary adjustments. Discussion Notes I discussed with the patient the use of clonazepam to help manage her anxiety and insomnia. I explained that the medication should be taken twice daily and advised her to avoid driving immediately after taking it due to potential drowsiness. We agreed to a follow-up appointment next week to assess her response to the medication and adjust the treatment plan as needed. I reassured her that this is a short-term solution and that adjustments can be made based on her progress. Patient Instructions - Take clonazepam twice daily, once in the morning and once before bed. - Avoid driving immediately after taking the medication. - Attend follow-up appointment next week to discuss progress and any necessary changes to the treatment plan. Medications: New clonazepam (Klonopin) 0.5 mg PO BID 30 tabs 0RF
[2025-03-16 10:00] VITALS: BP 140/90; PULSE 83; TEMP 36.2; O2SAT 100; BMI 20.2
--- OUTSIDE RECORDS SUMMARY | 2025-03-16 11:50 | XMS_ITS | Patient Health Record ---
Author Organization [facility] Address [address] [place] [address] Care Team Providers Care Material Processor Name Role Phone IsaiYo ortez Primary Care Provider [phone] [facility] Hogde Unavailable [phone] Allergies Allergen (clinical drug ingredient) Drug/Non Drug Allergy documented on EMR Reaction Allergy Type Onset Date Status amoxicillin Amoxicillin mouth sores, nausea, yeast inf Drug Allergy Active Biaxin Unknown Drug Allergy Active Minocycline HCl Unknown Drug Allergy A ctive tetracycline Tetracycline HCl Unknown Drug Allergy Active [...] primary osteoarthritis of the ankle and/or foot (576884094) Primary osteoarthrit is, right ankle and foot (M19.071) Active confirmed Problem Acquired hallux rigidus (0365594) Hallux rigidus, left foot (M20.22) Active confirmed Problem Acquired hallux rigidus (5013139) Hallux rigidus, right foot (M20.21) Active confirmed Plan Of Treatment Pending Test Test Name Order Date X ray : Foot, right 3V 01/08/2016 X ray : Foot, right 3V 01/22/2023 46212, J0702- INJECT or DRAIN, JOINT/BUR SA 07/24/2023 X ray : Ankle, right 3V 01/22/2023 Insurance Providers Payer Name Payer Address Payer Phone Subscriber Number Group Number Insured Name Patient Relationship to Insured Coverage Start Date Coverage End Date Medicare National [employer]t Sv[employer] [address] [place] [place] [address] [id number] Belén Hook Self - patient is the insured [employer] [facility] [address] [place] [address] [id number] Belén Hook Self - patient is the insured Medical (General) History Medical History History ICD Code Broken bones Cataracts Depression Measles Mumps Chicken pox covid-19 Osteoporosis Warts Surgical History Surgery Date(Month/Year) hysterectomy 1986 cataract surgery 2014 skin cancer removal / carcinoma at [facility] Hospitalization History Reason Date(Month/Year)
--- OUTSIDE RECORDS SUMMARY | 2025-03-16 11:50 | XMS_ITS | Patient Health Record ---
Author Organization [facility] Address [address] [place] [address] Care Team Providers Care Construction Producer Name Role Phone KRISHAN, KARTIK Primary Care Provider Kai Penaloza Jr Unavailable Allergies Allergen (clinical drug ingredient) Drug/Non Drug Allergy documented on EMR Reaction Allergy Type Onset Date Status tetracycline Tetracycline HCl Unknown Drug Allergy Active Minocycline HCl Unknown Drug Allergy A ctive Penicillin (uncoded) Unknown Allergy Active sumycin (uncoded) [...] Problem Status W/U Status Risk Notes Problem 809952779 Colon cancer screening (V76.51) Active confirmed Problem 118800718 Personal history of colonic polyps (Z86.010) Active confirmed Problem 308835629 Change in bowel habits (R19.4) Active confirmed Plan Of Treatment Future Test Test Name Order Date COLONOSCOPY 11/04/2014 COLONOSCOPY 08/21/2020 Insurance Providers Payer Name Payer Address Payer Phone Subscriber Number Group Number Insured Name Patient Relationship to Insured Coverage Start Date Coverage End Date MEDICARE OF [place] [address] [place] [address] [id number] MILADYS DINERO Self - patient is the insured [facility] [address] [place] [address] [phone] [id number] MILADYS DINERO Self - patient is the insured Medical (General) History Medical History History ICD Code colonoscopy 02/24/15, tubular adenomas x2 Denies NM,DM,CVA,Lung disease,renal dise ase back issues Surgical History Surgery Date(Month/Year) hysterectomy cataract removal - bilateral
--- OUTSIDE RECORDS SUMMARY | 2025-03-16 11:50 | XMS_ITS | Patient Health Record ---
Author Organization [facility] Address [address] [place] [address] [place] [address] Care Team Providers Care Estate Manager Name Role Phone MINERVA LUIS M.D. Primary Care Provider Unavail able MYLES LARIOS Unavailable [phone] Allergies Allergen (clinical drug ingredient) Drug/Non Drug Allergy documented on EMR Reaction Allergy Type Onset Date Status Minocycline HCl Unknown Drug Allergy A ctive [...] POLY (PNEUMOVAX 23) IM Intramuscular 05/13/2017 Administered [facility] [id number] Social History Tobacco Use: Social History Observation Description Date Details (start date - stop date) Former Smoker NA - NA Tobacco Status: Question Answer Notes Patient is a former smoker Problems Problem Type SNOMED Code ICD Code Onset Dates Problem Status W/U Status Risk Notes Problem 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 confirmed Problem 99207856 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) Active confirmed Problem 12002113 Vitamin D defici ency (E55.9) Active confirmed Problem 708706921 Medicare annual wellness visit, subsequent (Z00.00) Active confirmed Problem 198347571 Squamous cell carcinoma (C80.1) Active confirmed Problem 5848801 Chalazion of lef t lower eyelid (H00.15) Active confirmed Problem 200011146 Osteopenia deter mined by x-ray (M85.80) Active confirmed Problem 81462794 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) Active confirmed Problem 81748552 Blepharitis, carly ateral (H01.003) Active confirmed Problem 09178486 Hypercholesterol emia (E78.00) Active confirmed Problem 72896414 Non-seasonal all ergic rhinitis due to pollen (J30.1) Active confirmed Problem 132431993 Bunion of right foot (M21.611) Active confirmed Plan Of Treatment Future Test Test Name Order Date COMPREHENSIVE METABOLIC PANEL([id number]) 1 07/04/2018 CBC (INCLUDES DIFF/PLT)(Q-6399) 05/04/20 19 VITAMIN D,25-OH,TOTAL,IA (Q-79033) 05/04 LIPID PANEL WITH DIRECT LDL (Q-46172) Insurance Providers Payer Name Payer Address Payer Phone Subscriber Number Group Number Insured Name Patient Relationship to Insured Coverage Start Date Coverage End Date [place]ARE [place] PART B [address] [facility] MARIA TERESA ROMERO [id number] Belén Hook Self - patient is the insured [facility] PRIOR TO [id number] [address] [place] [id number] Belén Hook Self - patient is the insured 2 2 Medical (General) History Medical History History ICD Code Eczematous Dermatitis Esophageal reflux Allergic rhinitis Squamous cell carcinoma Right foot bunion Depression Osteopenia Surgical History Surgery Date(Month/Year) hysterectomy 1985 cataract surgery - Bilateral summer 2014 colonoscopy and [place] Summer 2014 Hospitalization History Reason Date(Month/Year) surgery
== END 2025-03-16 10:25 | disposition home or self-care (01) ==
LOC: HO.HMCH 09:47
PROVIDERS: PCP Internal Medicine; Visit Provider Internal Medicine
DX: F41.1 Generalized anxiety disorder (principal)

== ENCOUNTER → 2025-03-16 09:46 | Outpatient (BNVA) | payer MEDICARE, OTHER, SELFPAY | PROVIDERS: PCP Internal Medicine; Visit Provider Internal Medicine | DX: F41.1 Generalized anxiety disorder (principal) | CPT/HCPCS: 96127; 99212 ==

== ENCOUNTER 2025-03-23 10:16 | Outpatient (AMB) | payer MEDICARE, OTHER, SELFPAY ==
--- NOTE | 2025-03-23 10:30 | A.OFFPC_ITS ---
Vital Signs 03/23/25 10:31 Height 5 ft 3 in Weight 114 lb BMI 20.2 BP 130/68 Blood Pressure Location Lt brachial Position Sitting Pulse 72 Pulse Source Pulse Oximeter Temp 96.9 F Temp Source Temporal Artery Scan Pulse Oximetry (%) 100 Oxygen Delivery Method Room Air Intake Visit Reasons: 1 week f/u Intake Note: Patient is here to follow up on RONNA. Complaint of Dizziness Railcar Switchman Required: No Driveway Attendant: Not Required per policy Accompanied by: Self / Same As Patient Allergies dicloxacillin Allergy (Unknown, Verified 03/16/25 10:00) Unknown minocycline Allergy (Unknown, Verified 03/16/25 10:00) Unknown penicillin V Allergy (Unknown, Verified 03/16/25 10:00) Unknown tetracycline Allergy (Unknown, Verified 03/16/25 10:00) Unknown Tobacco use date assessed: 03/23/25 Fall risk assessment: No Falls in past year Last assessed Fall Risk: 03/23/25 Dental Screening Dental Screen Date: 06/30/24 [facility] Medical History (Updated 06/30/24 @ 10:13 by Yo Alex MD) Squamous cell carcinoma of left upper extremity Age related osteoporosis Familial hypercholesterolemia Constipation by delayed colonic transit COVID-19 vaccine administered Surgical History H/O colonoscopy (~09/01/20) History of squamous cell carcinoma excision History of cataract surgery History of hysterectomy Family History Father No problems noted. Mother No problems noted. Brother No problems noted. Sister No problems noted. Sister No problems noted. Paternal Grandfather Glaucoma Social History Housing: House Alcohol intake: current Alcohol intake frequency: a few times a month Patient Tobacco Use Status: Former Tobacco user Years Smoked: smoked for 25 years, stopped approximatly 25 years ago e-Cigarette/Vaping Use: Never Used Second Hand Smoke Exposure: Yes service: No Current occupational status: retired Cognitive needs: No Hearing needs: No Vision needs: No Questionnaire PHQ-9 Over the last 2 weeks, how often have you been bothered by any of the following problems? 1. Little interest or pleasure in doing things: not at all 2. Feeling down, depressed, or hopeless: more than half the days 3. Trouble falling or staying asleep, or sleeping too much: not at all 4. Feeling tired or having little energy: several days 5. Poor appetite or overeating: not at all 6. Feeling bad about yourself - or that you are a failure or have let yourself or your family down: not at all 7. Trouble concentrating on things, such as reading the newspaper or watching television: not at all 8. Moving or speaking so slowly that other people could have noticed. Or the opposite - being so fidgety or restless that you have been moving around a lot more than usual: not at all 9. Thoughts that you would be better off or of hurting yourself in some way: not at all Total score: 3 Depression Screening Interpretation: Positive Depression Screening Done: Yes Source: Developed by Drs. Kaden Fernandez, Caroline Osborne, Daren Juárez and colleagues, with an educational olivia from [employer]. Thrive Questionnaire Date Thrive assessed: 12/26/24 I am a: Patient What is your living situation today?: I have a steady place to live Within the past 12 months, did the food you bought not last and you didn't have the money to get more?: Never true Within the past 12 months, did you worry whether your food would run out before you got money to buy more?: Never true Do you have trouble paying for medicines?: No Do you have trouble getting transportation to medical appointments?: No Do you have trouble paying your heating and electricity bill?: No Do you have trouble taking care of your child, family member or friend?: No Do you have trouble with day-to-day activities such as bathing, preparing meals, shopping, managing finances, etc.?: No Are you currently unemployed and looking for a job?: No Are you interested in more education?: No Please select the resources that you would like help with: None Currently or been in a relationship where the following occur: No concerns reported THRIVE Score: 0 RONNA-7 AMB Questionnaire RONNA-7 Date RONNA - 7 assessed: 03/23/25 Feeling nervous, anxious, or on edge: 0 = Not at all Not being able to stop or control worryin = Not at all Worrying too much about different things: 0 = Not at all Trouble relaxin = Not at all Being so restless that it is hard to sit still: 0 = Not at all Becoming easily annoyed or irritable: 0 = Not at all Feeling afraid as if something awful might happen: 0 = Not at all Total RONNA-7 score (0-4 normal; 5-9 mild; 10-14 moderate; 15-21 severe): 0 Source: Developed by Drs. Kaden Fernandez, Caroline Osborne, Daren Juárez and colleagues, with an educational olivia from [employer]. Physical exam (Primary Care) Vital Signs: Last Vital Signs Temp 96.9 F 03/23/25 10:31 Pulse 72 03/23/25 10:31 BP 130/68 03/23/25 10:31 Pulse Ox 100 03/23/25 10:31 Oxygen Delivery Method Room Air 03/23/25 10:31 BMI result Body Mass Index 20.2 Tobacco/Smoking Status: Tobacco use Status Tobacco use date assessed 03/23/25 03/23/25 10:38 Patient Tobacco Use Status Former Tobacco user 03/23/25 10:31 e-Cigarette/Vaping Use Never Used 03/23/25 10:31 PHQ-9: PHQ-9 Score PHQ-9: Total score 3 03/23/25 10:38 Depression Screening Interpretation: Positive Thrive Assessment: Date of Thrive Assessment Date Thrive assessed 12/26/24 03/23/25 10:31 Currently or been in a relationship where the following occur: No concerns reported Coding Level of Care Code Est Pt Level 4 (94552) Complex EM visit Add On G2211 Diagnoses Generalized anxiety disorder F41.1 Assessment & Plan Assessment & Plan (1) Generalized anxiety disorder: Code(s): F41.1 - Generalized anxiety disorder Plan: History of Present Illness - The patient is an 79-year-old female presenting with medication management and emotional stability concerns. - She adjusted her medication dosage due to adverse effects, reducing from 0.5 mg to 0.25 mg, which alleviated symptoms of slurred speech and fatigue. - She reported a new onset of dizziness and lightheadedness upon waking. - The patient feels emotionally stronger with improved control over her emotions. - Her has significant care needs following a stroke, and she is managing his care with potential plans to hire additional help. Social History - The patient has no children and relies on her 75-year-old sister for support. - She is actively involved in managing her 's care needs following his stroke. Review of Systems - Neurological: Reports dizziness and lightheadedness upon waking. Denies any previous episodes of dizziness. - Psychological: Reports improved emotional control and reduced sensitivity. Physical Exam General: Cooperative and healthy appearing Nutritional Appearance: Well nourished Orientation/consciousness: Patient oriented x3 Limitations: No limitations Head: Normal to inspection General: Appearance normal, both eyes and all related structures Neck: Normal visual inspection Chest: Normal palpation of entire chest wall Respiratory: N ormal respiratory effort Neurology: Patient oriented x3, reports dizziness and lightheadedness upon waking up. Results Plan - Maintain current medication dosage of 0.25 mg at night, with flexibility to increase if needed. - Observe for any recurrence of dizziness or lightheadedness and modify treatment accordingly. - Engage with social worker school for 's care planning and explore options for additional support at home. Discussion Notes I discussed with the patient the importance of maintaining her current medication regimen and monitoring for any adverse effects such as dizziness. We also talked about the need for a support system for her 's care and the potential for hiring additional help if he returns home. I emphasized the im portance of self-care and setting boundaries to manage stress effectively. Patient Instructions - Continue taking 0.25 mg of medication at night. If needed, take an additional half in the evening. - Monitor for dizziness or lightheadedness and report any changes. - Coordinate with social worker school for 's care and consider hiring help if necessary. - Prioritize self-care and establish boundaries to manage stress.
[2025-03-23 10:31] VITALS: BP 130/68; PULSE 72; TEMP 36.1; O2SAT 100; BMI 20.2
--- OUTSIDE RECORDS SUMMARY | 2025-03-23 11:33 | XMS_ITS | Patient Health Record ---
Author Organization [facility] Billing Info Address [address] [place] [address] [place] [address] Care Team Providers Care Orthotics Technician Name Role Phone MINERVA LUIS M.D. 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) Active confirmed Problem 80581103 Vitamin D defici ency (E55.9) Active confirmed Problem 056788810 Medicare annual wellness visit, subsequent (Z00.00) Active confirmed Problem 192768719 Squamous cell carcinoma (C80.1) Active confirmed Problem 5199683 Chalazion of lef t lower eyelid (H00.15) Active confirmed Problem 948567242 Osteopenia deter mined by x-ray (M85.80) Active confirmed Problem 50271083 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) Active confirmed Problem 32401560 Blepharitis, carly ateral (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) Active confirmed Problem 17369146 Hypercholesterol emia (E78.00) Active confirmed Problem 95979256 Non-seasonal all ergic rhinitis due to pollen (J30.1) Active confirmed Problem 797195979 Bunion of right foot (M21.611) Active confirmed Plan Of Treatment Future Test Test Name Order Date COMPREHENSIVE METABOLIC PANEL([id number]) 1 07/04/2018 CBC (INCLUDES DIFF/PLT)(Q-6399) 05/04/20 19 VITAMIN D,25-OH,TOTAL,IA (Q-23368) 05/04 LIPID PANEL WITH DIRECT LDL (Q-45785) Insurance Providers Payer Name Payer Address Payer Phone Subscriber Number Group Number Insured Name Patient Relationship to Insured Coverage Start Date Coverage End Date [place]ARE [place] PART B [address] [facility] MARIA TERESA ROMERO [id number] [phone] [id number] Belén Hook Self - patient is the insured [facility] DOS PRIOR TO [id number] [address] [place] [id number] [phone] [id number] Belén Hook Self - patient is the insured 2 2 Medical (General) History Medical History History ICD Code Eczematous Dermatitis Esophageal reflux Allergic rhinitis Squamous cell carcinoma Right foot bunion Depression Osteopenia Surgical History Surgery Date(Month/Year) hysterectomy 1985 cataract surgery - Bilateral summer 2014 colonoscopy and [place] Summer 2014 Hospitalization History Reason Date(Month/Year) surgery
--- OUTSIDE RECORDS SUMMARY | 2025-03-23 11:33 | XMS_ITS | Patient Health Record ---
Author Organization [facility] Address [address] [place] [address] Care Team Providers Care Roustabout Pusher Name Role Phone KRISHAN, KARTIK Primary Care Provider Kai Penaloza Jr Unavailable [phone] Allergies Allergen (clinical drug ingredient) Drug/Non Drug [...] Problem Status W/U Status Risk Notes Problem 745137716 Colon cancer screening (V76.51) Active confirmed Problem 463495626 Personal history of colonic polyps (Z86.010) Active confirmed Problem 833388688 Change in bowel habits (R19.4) Active confirmed Plan Of Treatment Future Test Test Name Order Date COLONOSCOPY 11/04/2014 COLONOSCOPY 08/21/2020 Insurance Providers Payer Name Payer Address Payer Phone Subscriber Number Group Number Insured Name Patient Relationship to Insured Coverage Start Date Coverage End Date MEDICARE [place] [address] [place] [address] [id number] MILADYS DINERO Self - patient is the insured [facility] [address] [place] [address] [phone] [id number] MILADYS DINERO Self - patient is the insured Medical (General) History Medical History History ICD Code colonoscopy 02/24/15, tubular adenomas x2 Denies [place],DM,CVA,Lung disease,renal dise ase back issues Surgical History Surgery Date(Month/Year) hysterectomy cataract removal - bilateral
--- OUTSIDE RECORDS SUMMARY | 2025-03-23 11:33 | XMS_ITS | Patient Health Record ---
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 confirmed Problem Acquired hallux rigidus (6701259) Hallux rigidus, left foot (M20.22) Active confirmed Problem Acquired hallux rigidus (5506407) Hallux rigidus, right foot (M20.21) Active confirmed Plan Of Treatment Pending Test Test Name Order Date X ray : Foot, right 3V 01/08/2016 X ray : Foot, right 3V 01/22/2023 65461, J0702- INJECT or DRAIN, JOINT/BUR SA 07/24/2023 X ray : Ankle, right 3V 01/22/2023 Insurance Providers Payer Name Payer Address Payer Phone Subscriber Number Group Number Insured Name Patient Relationship to Insured Coverage Start Date Coverage End Date Medicare National [employer] [address] [place] [address] [id number] Belén Hook Self - patient is the insured [employer] [facility] [address] [place] [address] [id number] Belén Hook Self - patient is the insured Medical (General) History Medical History History ICD Code Broken bones Cataracts Depression Measles Mumps Chicken pox covid-19 Osteoporosis Warts Surgical History Surgery Date(Month/Year) hysterectomy 1986 cataract surgery 2014 [place] [facility] [place] History Reason Date(Month/Year)
== END 2025-03-23 12:41 | disposition home or self-care (01) ==
LOC: HO.HMCH 10:17
PROVIDERS: PCP Internal Medicine; Visit Provider Internal Medicine
DX: F41.1 Generalized anxiety disorder (principal)

== ENCOUNTER → 2025-03-23 10:16 | Outpatient (BNVA) | payer MEDICARE, OTHER, SELFPAY | PROVIDERS: PCP Internal Medicine; Visit Provider Internal Medicine | DX: F41.1 Generalized anxiety disorder (principal) | CPT/HCPCS: 96127; 99212 ==

== ENCOUNTER 2025-05-12 10:20 | Outpatient (REF) | payer MEDICARE, OTHER, SELFPAY ==
--- NOTE | ~2025-05-12 | MM_ITS ---
EXAMINATION: MM SCREENING DIGITAL BREAST TOMOSYNTHESIS, BILATERAL CLINICAL INFORMATION: Screening. Asymptomatic. COMPARISON: Comparison made to multiple prior, most recent May 06, 2024, and most remote January 08, 2018. TECHNIQUE: Digital breast tomosynthesis is performed in mediolateral oblique and craniocaudal views along with computer-aided detection (CAD). Synthesized 2D images are generated from the tomosynthesis. FINDINGS: BREAST COMPOSITION: The breasts are heterogeneously dense, which may obscure small masses. BILATERAL BREASTS: No significant masses, suspicious calcifications or other abnormalities are seen in either breast. MM/MM tomosynthesis screening BI IMPRESSION: BILATERAL BREASTS: Negative, no mammographic evidence of malignancy. Normal interval follow-up is recommended in 12 months. ASSESSMENT: BI-RADS: Category 1: Negative RECOMMENDATION: Routine annual mammography screening. FOLLOW-UP: 1 year F/U This examination should not preclude the clinical evaluation of a suspicious palpable abnormality. This patient's information was entered into a reminder system with a target due date for their next mammogram. Electronically signed by: Vikas Muhammad MD 05/15/2025 06:45 PM TONY
--- OUTSIDE RECORDS SUMMARY | 2025-05-12 15:19 | XMS_ITS | Patient Health Record ---
Author Organization [facility] Billing Info Address [address] [place] [address] [place] [address] Care Team Providers Care Cell Technician Name Role Phone MINERVA LUIS M.D. 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 Migrated - ProblemLi st-3706-P [facility] - [facility]gent[facility] e-10/02/19 14 Problem 390839705 Gastro-esophagea l reflux disease without esophagitis (K21.9) Active confirmed Problem Allergic contact dermatitis (428505167) Allergic contact dermatitis, unspecified cause (L23.9) Active confirmed Problem 145817650 GERD (gastroesop hageal reflux disease) (530.81) Active confirmed Problem 743089071 Osteopenia (733.90) Active confirmed Problem 31228061 Cervical radicul itis (723.4) Active confirmed Problem 162330948 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 confirmed Problem 36429568 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) Active confirmed Problem 74642065 Vitamin D defici ency (E55.9) Active confirmed Problem 595884210 Medicare annual wellness visit, subsequent (Z00.00) Active confirmed Problem 432949510 Squamous cell carcinoma (C80.1) Active confirmed Problem 7224852 Chalazion of lef t lower eyelid (H00.15) Active confirmed Problem 006874736 Osteopenia deter mined by x-ray (M85.80) Active confirmed Problem 49660691 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) Active confirmed Problem 25513901 Blepharitis, carly ateral (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) Active confirmed Problem 47093482 Hypercholesterol emia (E78.00) Active confirmed Problem 43330857 Non-seasonal all ergic rhinitis due to pollen (J30.1) Active confirmed Problem 111379013 Bunion of right foot (M21.611) Active confirmed Plan Of Treatment Future Test Test Name Order Date COMPREHENSIVE METABOLIC PANEL(Q-94062) 1 07/04/2018 CBC (INCLUDES DIFF/PLT)(Q-6399) 05/04/20 19 VITAMIN D,25-OH,TOTAL,IA (Q-70785) 05/04 LIPID PANEL WITH DIRECT LDL (Q-10839) Insurance Providers Payer Name Payer Address Payer Phone Subscriber Number Group Number Insured Name Patient Relationship to Insured Coverage Start Date Coverage End Date [place]ICARE [place] PART B [address] [facility] MARIA TERESA ROMERO [id number] [phone] [id number] Belén Hook Self - patient is the insured [facility] DOS PRIOR TO [id number] [address] [place] [id number] Belén Hook Self - patient is the insured 2 2 Medical (General) History Medical History History ICD Code Eczematous Dermatitis Esophageal reflux Allergic rhinitis Squamous cell carcinoma Right foot bunion Depression Osteopenia Surgical History Surgery Date(Month/Year) hysterectomy 1985 cataract surgery - Bilateral summer 2014 colonoscopy and Mammoram Summer 2014 Hospitalization History Reason Date(Month/Year) surgery
--- OUTSIDE RECORDS SUMMARY | 2025-05-12 15:19 | XMS_ITS | Patient Health Record ---
Author Organization [facility] Address [address] [place] [address] Care Team Providers Care Religious Education Director Name Role Phone NUPUR NICKERSON Primary Care Provider Kai Penaloza Jr Unavailable [phone] Allergies Allergen (clinical drug ingredient) Drug/Non Drug Allergy documented on EMR Reaction Allergy Type Onset Date Status Penicillin (uncoded) Unknown Allergy Active tetracycline sumycin (uncoded) Unknown Allergy Active Minocycline HCl Unknown Drug Allergy A ctive tetracycline Tetracycline HCl Unknown Drug Allergy Active Reason For Referral No Information Medications Medication SIG (Take, Route, Frequency, Duration) Notes Start Date End Date Status Ibuprofen PRN Active Tylenol PRN Active MiraLax (colon prep) 8.3 ounce ((238) grams mixed with Gatorade or Crystal Light orally begin at 5:00 p.m. the day before the procedure; Duration: 1 day 08/21/2020 Active Vitamin D3 1000 UNIT Capsule 1 capsule Orally Once a day Active Calcium 600 600 MG Tablet 1 tablet Orall y Four times a day Active Aspir-81 Active Vitamin B Complex-C Active Immunizations Vaccine Route Administration Date Status Comme nts Influenza Unknown 02/06/2020 Administered Social History Social History Additional Details Category Social Info Options Details Miscellaneous: Marital status: Occupation: retired Problems Problem Type SNOMED Code ICD Code Onset Dates Problem Status W/U Status Risk Notes Problem Colon cancer screening (989977269) Colon cancer screening (V76.51) Active confirmed Problem History of polyp of colon (situation) (246858728) Personal history of colonic polyps (Z86.010) Active confirmed Problem Change in bowel habit (67667838) Change in bowel habits (R19.4) Active confirmed Plan Of Treatment Future Test Test Name Order Date COLONOSCOPY 11/04/2014 COLONOSCOPY 08/21/2020 Insurance Providers Payer Name Payer Address Payer Phone Subscriber Number Group Number Insured Name Patient Relationship to Insured Coverage Start Date Coverage End Date MEDICARE OF [place] [address] [place] [address] [id number] MILADYS DINERO Self - patient is the insured [facility] INDEMNITY [address] [place] [address] [id number] MILADYS DINERO Self - patient is the insured Medical (General) History Medical History History ICD Code colonoscopy 02/24/15, tubular adenomas x2 Denies [place],DM,CVA,Lung disease,renal dise ase back issues Surgical History Surgery Date(Month/Year) hysterectomy cataract removal - bilateral
== END 2025-05-12 10:21 | disposition home or self-care (01) ==
LOC: HO.MAMMO 10:20
PROVIDERS: PCP Internal Medicine; Visit Provider Internal Medicine
DX: Z12.31 Encounter for screening mammogram for malignant neoplasm of breast (principal)
CPT/HCPCS: 77063; 77067

== ENCOUNTER → 2025-05-12 10:30 | Outpatient (BNV) | payer MEDICARE, OTHER, SELFPAY | PROVIDERS: PCP Internal Medicine; Visit Provider Radiology Body Imaging | DX: Z12.31 Encounter for screening mammogram for malignant neoplasm of breast (principal) | CPT/HCPCS: 77063; 77067 ==